=== PATIENT | female | born 1955 | race African-American/Black ===

== ENCOUNTER 2016-09-13 11:06 | Emergency (ER) | payer MEDICARE, MEDICAID ==
[~2016-09-13] VITALS: Ht 165.1 cm; Wt 81.6 kg
[~2016-09-13 11:06] MED LIST: AMLODIPINE BESY10 MG ORAL; ASPIR 8181 MG ORAL; COLACE100 MG ORAL; IBUPROFEN600 MG ORAL; INVANZ1 G1 IM; INVANZ1 GM IVPB; OMEPRAZOLE20 M2 ORAL; PENICILLIN V P500 MG PO; PREDNISONE20 MG ORAL; PROTONIX40 MG ORAL; TENORETIC ORAL; lidocaine
--- NOTE | 2016-09-13 12:16 | Emergency Room Report ---
History of Present Illness General Chief Complaint: Flu Like Symptoms Source: Patient Present Illness HPI Patient's a 60-year-old female who presented for increased nonproductive cough. Patient gradual onset of symptoms. Patient reported having a small amount of nasal bleeding. The patient stated that she had been taking her inhalers. She denied any leg pain or swelling. She denied any chest pain to she had not been having any fever. The patient reported having a persistent cough for approximately 3 weeks. She denied any weight loss. She's not a smoker. Allergies: Coded Allergies: No Known Allergies (Unverified , 10/18/15) Patient History Past Medical History: see triage record Reviewed Nursing Documentation: PMH: Agreed, PSxH: Agreed Nursing Documentation-PMH Hx Cardiac Problems: No Hx Hypertension: Yes Hx Pacemaker: No Hx Asthma: Yes - 4yrs ago Hx COPD: Yes Hx Gastrointestinal Problems: Yes Hx Neurological Problems: No Hx Tremors: Yes Hx Syncope: No Hx Headaches: Yes Hx Weakness: Yes Hx Neurologic Surgery: No Hx Brain Shunt: No Review of Systems All Other Systems: negative except mentioned in HPI Physical Exam Vital Signs Date Time Temp Pulse Resp B/P Pulse Ox O2 Delivery O2 Flow Rate FiO2 09/13/16 11:17 98.1 113 20 139/89 97 Room Air General Appearance: well appearing, no apparent distress, alert, GCS 15 Head: normocephalic, atraumatic ENT: hearing grossly normal, normal voice Neck: full range of motion, supple Respiratory: no respiratory distress, speaking full sentences Cardiovascular #1: normal peripheral pulses, regular rate, rhythm, no edema Gastrointestinal: normal bowel sounds, non tender, soft Musculoskeletal: normal inspection, back normal, digits/nails normal, no calf tenderness Neurologic: normal inspection, alert, oriented x3, fuller brush man III-XII nml as tested, motor strength/tone normal, DTRs symmetric, normal gait Psychiatric: mood/affect normal Skin: no rash Medical Decision Making Diagnostic Impression: Primary Impression: Bronchitis ER Course Patient is a 60-year-old female who presented for cough.Differential diagnosis included but was not limited to bronchitis, pneumonia, pulmonary embolism, pericarditis, asthma, foreign body. Patient's benign exam and does not appear to require any laboratory testing at this time. A chest x-ray one view interpreted by me showed no evident infiltrate with normal cardiac size normal mediastinum. There is no evident pleural effusion. There is no pneumothorax.The patient is advised to follow up with primary care doctor in 1-2 days. Patient is advised to return if any worsening condition or if any changes in status that are concerning. Chest X-Ray Diagnostic Results EP Interpretation: Yes Findings: no consolidation, no effusion, no pneumothorax, no acute cardiopulmonary disease Number of Views: 1 Last Vital Signs Date Time Temp Pulse Resp B/P Pulse Ox O2 Delivery O2 Flow Rate FiO2 09/13/16 11:24 113 20 Room Air 09/13/16 11:17 98.1 139/89 97 Status: improved Disposition: HOME, SELF-CARE Condition: Stable Scripts Guaifenesin* (ADULT W[facility]-TUSSIN*) 100 Mg/5 Ml Liquid 10 ML ORAL Q4H, #120 ML Prov: Rory Lowe 09/13/16 Rory Lowe Sep 13, 2016 12:16
[2016-09-13] MEDS ORDERED: ADULT WAL-100 MG/5 M ORAL (12:18)
[2016-09-13 12:30] VITALS: BP 139/89
--- NOTE | 2016-09-13 13:51 | Diagnostic Imaging Report ---
Indications: Chest pain Technique: Portable AP chest Findings: Comparison: None Cardiac silhouette remains normal in size. Pulmonary vasculature remains within normal limits. Lungs and pleura remain clear. Mild calcification of the aortic arch, suggestion of lower cervical vertebral degenerative changes again noted. IMPRESSION: No evidence of acute disease, unchanged Stable chronic changes as described
== END 2016-09-13 12:30 | disposition home or self-care (01) ==
LOC: EMR 12:22
DX: J44.0 Chronic obstructive pulmonary disease with (acute) lower respiratory infection (principal); J20.9 Acute bronchitis, unspecified; J45.909 Unspecified asthma, uncomplicated; I10 Essential (primary) hypertension
CPT/HCPCS: 71010; 99283

== ENCOUNTER → 2016-12-20 | Outpatient (CLI) | payer MEDICARE, MEDICAID ==
[~2016-12-20] MED LIST changes: +ADULT WAL-100 MG/5 M ORAL
--- NOTE | 2016-12-20 10:10 | Diagnostic Imaging Report ---
Indication: COUGH Technique: 2 views of the chest Comparison: 09/13/2016 single view chest. Findings: Lungs and pleural spaces are clear. Heart size is normal. Bones are unremarkable. Aorta is calcified. There are cholecystectomy clips. No significant change Impression: No acute process
== END | disposition home or self-care (01) ==
LOC: MAMMO 09:25
DX: Z12.31 Encounter for screening mammogram for malignant neoplasm of breast (principal); R05 Cough; Z90.49 Acquired absence of other specified parts of digestive tract
CPT/HCPCS: 71020; G0202; 77067

== ENCOUNTER → 2017-03-28 | Outpatient (CLI) | payer MEDICARE, OTHER ==
[2017-03-28 10:35] LABS: APPEARANCE,URINE CLOUDY; KETONES,URINE NEGATIVE (NEGATIVE); LEUKOCYTE ESTERASE ,URINE 2+ (NEGATIVE); NITRITE,URINE NEGATIVE (NEGATIVE); PH,URINE 6 (4.5-8.0); PROTEIN,URINE 1+ (NEGATIVE); UROBILINOGEN,URINE 1 MG/DL (0.0-1.0)
[2017-03-28 10:56] LABS: BASOPHILS % (AUTO) 1.2 % (0.0-2.0); EOSINOPHILS % (AUTO) 2.4 % (0.0-3.0); LYMPHOCYTES % (AUTO) 40.9 % (20.0-45.0); MEAN CORPUSCULAR HEMOGLOBIN 29.7 PG (27.0-31.0); MEAN CORPUSCULAR HGB CONC 33.6 G/DL (32.0-36.0); MEAN CORPUSCULAR VOLUME 88 FL (80-99); MEAN PLATELET VOLUME 7.4 FL (6.5-10.1); MONOCYTES % (AUTO) 5.5 % (1.0-10.0); NEUTROPHILS % (AUTO) 50.1 % (45.0-75.0); PLATELET COUNT 303 K/UL (150-450); RED BLOOD COUNT 4.63 M/UL (4.20-5.40); RED CELL DISTRIBUTION WIDTH 11.4 % (11.6-14.8); WHITE BLOOD COUNT 6.5 K/UL (4.8-10.8)
[2017-03-28 11:02] LABS: BACTERIA,URINE FEW /HPF; ICTOTEST NEGATIVE; MUCUS,URINE MODERATE /LPF (NONE/OCC); RBC,URINE 0-2 /HPF (0 - 2); SQUAMOUS EPITHELIAL CELL,UR FEW /LPF (NONE/OCC)
[2017-03-28 11:14] LABS: ANION GAP 11 (5-15); CALCIUM 9.7 mg/dL (8.6-10.2); CARBON DIOXIDE 28 mEQ/L (20-30); CHLORIDE 102 mEQ/L (98-107); CREATININE 0.8 mg/dL (0.5-0.9); GLOMERULAR FILTRATION RATE > 60 mL/min (>60); HEMOLYSIS 4; POTASSIUM 3.6 mEQ/L (3.4-4.9); SODIUM 141 mEQ/L (135-145)
== END | disposition home or self-care (01) ==
LOC: LAB 10:18
DX: M54.5 Low back pain (principal)
CPT/HCPCS: 36415; 80048; 81001; 85025

== ENCOUNTER 2017-06-24 09:47 | Outpatient (CLI) | payer MEDICARE, MEDICAID ==
[2017-06-24 10:58] LABS: CHOLESTEROL 231 MG/DL (< 200); CHOLESTEROL/HDL RATIO 3.1 (3.3-4.4); THYROID STIMULATING HORMONE 1.371 uiU/mL (0.358-3.740)
--- NOTE | 2017-06-24 16:58 | Diagnostic Imaging Report ---
Indication: History of renal cyst, abnormal prior renal ultrasound, stage I acute renal failure Technique: Grayscale and duplex images of the kidneys, retroperitoneum, and bladder were obtained. Comparison: 05/02/2016 Findings: Right kidney measures 12.4 cm in length. Left kidney measures 12.1 cm in length. Both kidneys demonstrate normal echogenicity. No hydronephrosis. Centimeters again demonstrated is a 4.1 cm diameter right renal interpolar region cyst, appearing unchanged from the prior study. Normal inferior vena cava. Bladder is normal. Impression: Right renal cyst, unchanged since prior study 05/02/2016 Negative for hydronephrosis.
--- NOTE | 2017-06-24 17:13 | Diagnostic Imaging Report ---
Indication: Reason For Exam: COUGH Technique: 2 views of the chest Comparison: 12/20/2016 Findings: No acute infiltrates, effusions, or congestion. Tortuous calcified aorta. Normal heart size. Upper mediastinum unremarkable. No significant change Impression: No acute process.
== END 2017-06-24 11:47 | disposition home or self-care (01) ==
LOC: ULS 09:47
DX: R05 Cough (principal); N28.1 Cyst of kidney, acquired; N19 Unspecified kidney failure
CPT/HCPCS: 36415; 71020; 76775; 80061; 84443; 93005

== ENCOUNTER 2017-08-07 11:32 | Outpatient (CLI) | payer MEDICARE, MEDICAID ==
--- NOTE | 2017-08-07 12:40 | Diagnostic Imaging Report ---
. Indication: Cough Technique: 2 views of the chest Comparison: 06/24/2017. Findings: Lungs and pleural spaces are clear. Heart size is normal. Bones are unremarkable. No significant interim change. Impression: No acute process
== END 2017-08-07 13:32 | disposition home or self-care (01) ==
LOC: RAD 11:32
DX: R05 Cough (principal)
CPT/HCPCS: 71046

== ENCOUNTER 2017-08-18 12:46 | Inpatient (IN) | payer MEDICARE, MEDICAID ==
[~2017-08-18] VITALS: Ht 165.1 cm; Wt 86.2 kg
--- NOTE | 2017-08-18 14:37 | Emergency Room Report ---
History of Present Illness General Chief Complaint: Upper Respiratory Illness Source: Patient (Jessica Gupta) Present Illness HPI Pt. presents to the ED c/o cough, nasal congestion, 10/10 in severity sore throat, body-aches, fevers, chills and headaches x 1 week. Patient states that she tested positive for influenza at her ED visit 3 days ago and was started on Tamiflu yesterday. She reports her cough has been progressive and now is productive. Patient states that she continues to feel worse. ear pain, high fevers, lethargy, neck pain/stiffness, irritability, photophobia dehydration, N/ V/D. Denies Palpitations, LOC, AMS, seizures, paresthesias, or changes in Hearing or vision, no Sudden severe CACERES. (Jessica Gupta) Allergies: Coded Allergies: No Known Allergies (Unverified , 10/18/15) Patient History Past Medical History: see triage record Past Surgical History: none Pertinent Family History: none Reviewed Nursing Documentation: PMH: Agreed, PSxH: Agreed (Jessica Gupta) Nursing Documentation-PMH Hx Hypertension: Yes Hx Pacemaker: No Hx Asthma: Yes Hx COPD: Yes Hx Gastrointestinal Problems: Yes Hx Neurological Problems: No Hx Tremors: Yes Hx Syncope: No Hx Headaches: Yes Hx Weakness: Yes Hx Neurologic Surgery: No Hx Brain Shunt: No (Jessica Gupta) Review of Systems All Other Systems: negative except mentioned in HPI (Jessica Gupta) Physical Exam Vital Signs Date Time Temp Pulse Resp B/P (MAP) Pulse Ox O2 Delivery O2 Flow Rate FiO2 08/18/17 12:55 99.9 114 18 126/64 95 Room Air Sp02 EP Interpretation: reviewed, normal General Appearance: alert, GCS 15, mild distress, lethargic Head: normocephalic, atraumatic Eyes: bilateral eye normal inspection, bilateral eye PERRL ENT: hearing grossly normal, normal voice, uvula midline, moist mucus membranes , pharyngeal erythema - no exudates Neck: full range of motion, no meningismus Respiratory: chest non-tender, lungs clear, normal breath sounds, speaking full sentences Cardiovascular #1: no edema, normal capillary refill, tachycardia Rectal: deferred Genitourinary: normal inspection Musculoskeletal: back normal, gait/station normal, normal range of motion, non- tender Neurologic: alert, oriented x3, responsive, motor strength/tone normal, sensory intact, speech normal, grossly normal Psychiatric: judgement/insight normal Skin: normal color, no rash, warm/dry, well hydrated Lymphatic: no adenopathy (Jessica Gupta) Medical Decision Making PA Attestation Dr. Lester is my supervising Physician whom patient management has been discussed with. (Jessica Gupta) Diagnostic Impression: Primary Impression: Influenza Additional Impression: Acute viral syndrome ER Course Pt. presents to the ED c/o cough, nasal congestion, 10/10 in severity sore throat, body-aches, fevers, chills and headaches x 1 week. Patient states that she tested positive for influenza at her ED visit 3 days ago and was started on Tamiflu yesterday. She reports her cough has been progressive and now is productive. Patient states that she continues to feel worse. ear pain, high fevers, lethargy, neck pain/stiffness, irritability, photophobia dehydration, N/ V/D. Denies Palpitations, LOC, AMS, seizures, paresthesias, or changes in Hearing or vision, no Sudden severe CACERES. Ddx considered but are not limited to URI, pneumonia, PE, strep pharyngitis, meningitis, influenza, OM/OE just to name a few. Vital signs: Pt. is afebrile, the remaining VS are WNL H&PE are most consistent with Viral Syndrome suspicious for Influenza will treat clinically - no meningeal signs, Lungs are clear and oropharynx is not involved, no evidence of bacterial infection at this time. ORDERS: -CBC: unremarkable -CMP: unremarkable -Lactic Acid: unremarkable -Blood Cultures x 2 : pending -Troponin : WNL -CXR : unremarkable -EK NSR no acute ST changes. -Influenza A & B antigen: Negative ED INTERVENTIONS: -Tylenol PO -Viscous Lidocaine PO DISPOSITION: at this time pt. will be admitted to Dr. Perry for positive influenza with viral syndrome. Dr. Perry agreed to admit the pt. and to continue pt. care management. Labs Test 08/18/17 14:55 White Blood Count 4.6 K/UL (4.8-10.8) Red Blood Count 4.60 M/UL (4.20-5.40) Hemoglobin 13.4 G/DL (12.0-16.0) Hematocrit 39.3 % (37.0-47.0) Mean Corpuscular Volume 85 FL (80-99) Mean Corpuscular Hemoglobin 29.1 PG (27.0-31.0) Mean Corpuscular Hemoglobin Concent 34.1 G/DL (32.0-36.0) Red Cell Distribution Width 11.3 % (11.6-14.8) Platelet Count 191 K/UL (150-450) Mean Platelet Volume 7.5 FL (6.5-10.1) Neutrophils (%) (Auto) 58.0 % (45.0-75.0) Lymphocytes (%) (Auto) 30.8 % (20.0-45.0) Monocytes (%) (Auto) 8.5 % (1.0-10.0) Eosinophils (%) (Auto) 1.3 % (0.0-3.0) Basophils (%) (Auto) 1.4 % (0.0-2.0) Sodium Level 137 MMOL/L (136-145) Potassium Level 3.6 MMOL/L (3.5-5.1) Chloride Level 104 MMOL/L (98-107) Carbon Dioxide Level 24 MMOL/L (21-32) Anion Gap 9 mmol/L (5-15) Blood Urea Nitrogen 5 mg/dL (7-18) Creatinine 0.8 MG/DL (0.55-1.30) Estimat Glomerular Filtration Rate > 60 mL/min (>60) Glucose Level 99 MG/DL (74-106) Lactic Acid Level 0.90 mmol/L (0.66-2.22) Calcium Level 9.3 MG/DL (8.5-10.1) Total Bilirubin 0.2 MG/DL (0.2-1.0) Aspartate Amino Transf (AST/SGOT) 28 U/L (15-37) Alanine Aminotransferase (ALT/SGPT) 36 U/L (12-78) Alkaline Phosphatase 128 U/L (46-116) Total Creatine Kinase 197 U/L (26-308) Troponin I 0.000 ng/mL (0.000-0.056) Total Protein 8.0 G/DL (6.4-8.2) Albumin 4.0 G/DL (3.4-5.0) Globulin 4.0 g/dL Albumin/Globulin Ratio 1.0 (1.0-2.7) (Jessica Gupta) ER Course Please see the above history and physical. I discussed this patient in detail with Seble Gupta. Dr. Schmidt had contacted her and stated that he wanted the patient admitted. The patient is admitted to medical floor. (Paulie Lester M.D.) EKG Diagnostic Results EP Interpretation: Dr. Lester Rate: normal - 92 Rhythm: NSR ST Segments: no acute changes ASA given to the pt in ED: No PA Scribe Text this interpretation was scribed by LAMINE Gupta (Jessica Gupta) Chest X-Ray Diagnostic Results Chest X-Ray Diagnostic Results : Chest X-Ray Ordered: Yes # of Views/Limited/Complete: 1 View Indication: Shortness of Breath EP Interpretation: Yes PA Xray: Interpretation reviewed, by supervising MD, and agrees with findings. Interpretation: no consolidation, no effusion, no pneumothorax, no acute cardiopulmonary disease Impression: No acute disease Electronically Signed by: Jessica Gupta PA-C (Jessica Gupta) Chest X-Ray Diagnostic Results : PA Xray: Interpretation reviewed, by supervising MD, and agrees with findings. - Paulie Lester MD (Paulie Lester M.D.) Last Vital Signs Date Time Temp Pulse Resp B/P (MAP) Pulse Ox O2 Delivery O2 Flow Rate FiO2 08/18/17 12:55 99.9 114 18 126/64 95 Room Air (Jessica Gupta) Disposition: ADMITTED INPATIENT Condition: Serious Referrals: LAURA PERRY (PCP) Jessica Gupta Aug 18, 2017 14:37 Paulie Lester M.D. Aug 20, 2017 06:59
[2017-08-18] MEDS ORDERED: Lidocaine 2% Visc 15ml soln ORAL ONE (14:45)
[2017-08-18 15:14] LABS: BASOPHILS % (AUTO) 1.4 % (0.0-2.0); EOSINOPHILS % (AUTO) 1.3 % (0.0-3.0); HEMATOCRIT 39.3 % (37.0-47.0); HEMOGLOBIN 13.4 G/DL (12.0-16.0); LYMPHOCYTES % (AUTO) 30.8 % (20.0-45.0); MEAN CORPUSCULAR VOLUME 85 FL (80-99); MONOCYTES % (AUTO) 8.5 % (1.0-10.0); PLATELET COUNT 191 K/UL (150-450); RED CELL DISTRIBUTION WIDTH 11.3 % (11.6-14.8); WHITE BLOOD COUNT 4.6 K/UL (4.8-10.8)
[2017-08-18 15:30] LABS: ANION GAP 9 mmol/L (5-15); BLOOD UREA NITROGEN 5 mg/dL (7-18); CALCIUM 9.3 MG/DL (8.5-10.1); CARBON DIOXIDE 24 MMOL/L (21-32); CHLORIDE 104 MMOL/L (98-107); CREATININE 0.8 MG/DL (0.55-1.30); POTASSIUM 3.6 MMOL/L (3.5-5.1); SODIUM 137 MMOL/L (136-145)
[2017-08-18 15:34] LABS: ALANINE AMINOTRANSFERASE 36 U/L (12-78); ALKALINE PHOSPHATASE 128 U/L (46-116); ASPARTATE AMINO TRANSFERASE 28 U/L (15-37); BILIRUBIN,TOTAL 0.2 MG/DL (0.2-1.0); CREATINE KINASE 197 U/L (26-308)
--- NOTE | 2017-08-18 16:59 | Diagnostic Imaging Report ---
Indication: Cough Technique: 2 views of the chest Comparison: 08/07/2017 Findings: Lungs and pleural spaces are clear. The heart size is normal. The aorta is tortuous and calcified. The bones are unremarkable. There is no significant interim change Impression: No acute process
[2017-08-18 17:29] VITALS: BP 129/57
--- NOTE | 2017-08-18 19:11 | Consultation ---
History of Present Illness General Date patient seen: Aug 18, 2017 Chief Complaint: Upper Respiratory Illness Present Illness HPI 61 year old female presented to the ED with c/o cough, nasal congestion, 10/10 in severity sore throat, body-aches, fevers, chills and headaches x 1 week. Patient states that she tested positive for influenza at her ED visit 3 days ago and was started on Tamiflu yesterday. She reports her cough has been progressive and now is productive. Patient states that she continues to feel worse. ear pain, high fevers, lethargy, neck pain/stiffness, irritability, photophobia dehydration, N/V/D. Denies Palpitations, LOC, AMS, seizures, paresthesias, or changes in Hearing or vision, no Sudden severe CACERES. She is admitted for further work up. Allergies: Coded Allergies: No Known Allergies (Unverified , 10/18/15) Medication History Scheduled Amlodipine Besylate* (Amlodipine Besylate*), 10 MG ORAL DAILY, (Reported) Aspirin* (Aspir 81*), 81 MG ORAL DAILY, (Reported) Atenolol/Chlorthalidone (Tenoretic 50 Tablet), 1 TAB ORAL DAILY, (Reported) Docusate Sodium* (Colace*), 100 MG ORAL TWICE A DAY, (Reported) Ertapenem (Invanz), 1 GM IM DAILY, (Reported) Ertapenem Sodium* (INVanz*), 1 GM IVPB Q24H, (Reported) Guaifenesin* (Adult [employer]-Tussin*), 10 ML ORAL Q4H Omeprazole (Omeprazole), 20 MG ORAL DAILY, (Reported) Pantoprazole* (Protonix*), 40 MG ORAL ACBREAKFAST, (Reported) Penicillin V Potassium* (Penvk*), 500 MG PO BID, (Reported) Prednisone* (Prednisone*), 60 MG ORAL DAILY, (Reported) Scheduled PRN Ibuprofen* (Motrin*), 600 MG ORAL Q8H PRN for For Pain, (Reported) Miscellaneous Medications [lidocaine], (Reported) Patient History Healthcare decision maker N Resuscitation status Full Code Advanced Directive on File Past Medical/Surgical History Past Medical/Surgical History: (1) HTN (hypertension) (2) COPD (chronic obstructive pulmonary disease) Review of Systems Respiratory: Reports: cough, shortness of breath All Other Systems: negative except mentioned in HPI Physical Exam General Appearance: WD/WN, no apparent distress Lines, tubes and drains: peripheral, central line HEENT: normocephalic, atraumatic Neck: non-tender, normal alignment Respiratory/Chest: chest wall non-tender, lungs clear Cardiovascular/Chest: normal peripheral pulses, normal rate Abdomen: normal bowel sounds, non tender Last 24 Hour Vital Signs Date Time Temp Pulse Resp B/P (MAP) Pulse Ox O2 Delivery O2 Flow Rate FiO2 08/18/17 17:29 98.2 88 19 129/57 96 08/18/17 17:12 99.0 08/18/17 12:55 99.9 114 18 126/64 95 Room Air Laboratory Tests Test 08/18/17 14:55 White Blood Count 4.6 K/UL (4.8-10.8) L Red Blood Count 4.60 M/UL (4.20-5.40) Hemoglobin 13.4 G/DL (12.0-16.0) Hematocrit 39.3 % (37.0-47.0) Mean Corpuscular Volume 85 FL (80-99) Mean Corpuscular Hemoglobin 29.1 PG (27.0-31.0) Mean Corpuscular Hemoglobin Concent 34.1 G/DL (32.0-36.0) Red Cell Distribution Width 11.3 % (11.6-14.8) L Platelet Count 191 K/UL (150-450) Mean Platelet Volume 7.5 FL (6.5-10.1) Neutrophils (%) (Auto) 58.0 % (45.0-75.0) Lymphocytes (%) (Auto) 30.8 % (20.0-45.0) Monocytes (%) (Auto) 8.5 % (1.0-10.0) Eosinophils (%) (Auto) 1.3 % (0.0-3.0) Basophils (%) (Auto) 1.4 % (0.0-2.0) Sodium Level 137 MMOL/L (136-145) Potassium Level 3.6 MMOL/L (3.5-5.1) Chloride Level 104 MMOL/L (98-107) Carbon Dioxide Level 24 MMOL/L (21-32) Anion Gap 9 mmol/L (5-15) Blood Urea Nitrogen 5 mg/dL (7-18) L Creatinine 0.8 MG/DL (0.55-1.30) Estimat Glomerular Filtration Rate > 60 mL/min (>60) Glucose Level 99 MG/DL (74-106) Lactic Acid Level 0.90 mmol/L (0.66-2.22) Calcium Level 9.3 MG/DL (8.5-10.1) Total Bilirubin 0.2 MG/DL (0.2-1.0) Aspartate Amino Transf (AST/SGOT) 28 U/L (15-37) Alanine Aminotransferase (ALT/SGPT) 36 U/L (12-78) Alkaline Phosphatase 128 U/L (46-116) H Total Creatine Kinase 197 U/L (26-308) Troponin I 0.000 ng/mL (0.000-0.056) Total Protein 8.0 G/DL (6.4-8.2) Albumin 4.0 G/DL (3.4-5.0) Globulin 4.0 g/dL Albumin/Globulin Ratio 1.0 (1.0-2.7) Height (Feet): 5 Height (Inches): 5.00 Weight (Pounds): 190 Assessment/Plan Problem List: (1) Bronchitis ICD Codes: J40 - Bronchitis, not specified as acute or chronic SNOMED: 09871477 (2) Acute viral syndrome ICD Codes: B34.9 - Viral infection, unspecified SNOMED: 33854599 (3) Influenza ICD Codes: J11.1 - Influenza due to unidentified influenza virus with other respiratory manifestations SNOMED: 0385795 (4) COPD (chronic obstructive pulmonary disease) ICD Codes: J44.9 - Chronic obstructive pulmonary disease, unspecified SNOMED: 17592964 (5) HTN (hypertension) ICD Codes: I10 - Essential (primary) hypertension SNOMED: 15425685 Assessment/Plan respiratory treatment and isolation Tamiflu check sputum for culture and sensitivity. titrate fio2 antitussives. CANDACE TRINH Aug 18, 2017 19:11
[2017-08-18] MEDS ORDERED: Albuterol/Ipratropium 3ml neb HHN PRN (19:15)
[2017-08-18] MEDS ORDERED: Morphine Sulfate 4mg/ml Inj IVP PRN (19:15)
[2017-08-18] MEDS ORDERED: Miralax 17gm pkt ORAL PRN (19:15)
[2017-08-18 20:00] VITALS: BP 125/82
[2017-08-18 21:00] VITALS: BP 125/82
[2017-08-18] MEDS ORDERED: Vancomycin 1.5gm/D5W 250ml 250 ML IVPB SCH (21:00)
[2017-08-18] MEDS: Cefepime HCl 2 GM in NS 110 ML IV SCH (21:30)
[2017-08-18] MEDS: Heparin 5000 units/ml inj SUBQ SCH (21:33)
[2017-08-18] MEDS ORDERED: Acetaminophen 500mg (ES) tab ORAL PRN (22:30)
[2017-08-18] MEDS ORDERED: Vancomycin 1 GM in D5W 275 ML IV SCH (23:00)
[2017-08-19] VITALS (7 sets, daily range): BP systolic 117–141; BP diastolic 65–87
[2017-08-19 04:08] LABS: APPEARANCE,URINE CLEAR; BILIRUBIN, URINE NEGATIVE (NEGATIVE); COLOR,URINE PALE YELLOW; GLUCOSE, URINE (UA) NEGATIVE (NEGATIVE); KETONES,URINE NEGATIVE (NEGATIVE); LEUKOCYTE ESTERASE ,URINE 1+ (NEGATIVE); NITRITE,URINE NEGATIVE (NEGATIVE); PH,URINE 6 (4.5-8.0); PROTEIN,URINE NEGATIVE (NEGATIVE); UROBILINOGEN,URINE NORMAL MG/DL (0.0-1.0)
[2017-08-19] MEDS: Cefepime HCl 2 GM in NS 110 ML IV SCH (08:42)
[2017-08-19] MEDS: Aspirin EC 81mg tab ORAL SCH (08:43)
[2017-08-19] MEDS: Oseltamivir 75mg cap ORAL SCH ×2 (08:43→18:53)
[2017-08-19] MEDS: Heparin 5000 units/ml inj SUBQ SCH ×2 (08:48→21:00)
[2017-08-19] MEDS ORDERED: Vancomycin 1gm in D5W 275ml IVPB SCH (09:00)
[2017-08-19 10:35] LABS: HEMOGLOBIN 12.8 G/DL (12.0-16.0); MEAN CORPUSCULAR VOLUME 87 FL (80-99); PLATELET COUNT 192 K/UL (150-450); RED BLOOD COUNT 4.38 M/UL (4.20-5.40); RED CELL DISTRIBUTION WIDTH 11.4 % (11.6-14.8); WHITE BLOOD COUNT 3.2 K/UL (4.8-10.8)
[2017-08-19 11:00] LABS: ALBUMIN 3.6 G/DL (3.4-5.0); ANION GAP 7 mmol/L (5-15); BLOOD UREA NITROGEN 3 mg/dL (7-18); CALCIUM 8.7 MG/DL (8.5-10.1); CARBON DIOXIDE 28 MMOL/L (21-32); CHLORIDE 106 MMOL/L (98-107); CREATININE 0.7 MG/DL (0.55-1.30); PHOSPHORUS 2.9 MG/DL (2.5-4.9); POTASSIUM 3.4 MMOL/L (3.5-5.1); SODIUM 140 MMOL/L (136-145)
--- NOTE | 2017-08-19 18:49 | Pulmonology Progress Note ---
Assessment/Plan Problems: (1) Bronchitis (2) Acute viral syndrome (3) Influenza (4) COPD (chronic obstructive pulmonary disease) (5) HTN (hypertension) Assessment/Plan respiratory treatment iv abx check sputum tamiflu symptomatic treatment Subjective ROS Limited/Unobtainable: No Allergies: Coded Allergies: No Known Allergies (Unverified , 10/18/15) Objective Last 24 Hour Vital Signs Date Time Temp Pulse Resp B/P (MAP) Pulse Ox O2 Delivery O2 Flow Rate FiO2 08/19/17 16:07 98.8 94 19 123/65 98 08/19/17 12:00 99.3 93 20 141/78 96 08/19/17 12:00 99.3 93 20 141/78 96 08/19/17 08:53 97.7 08/19/17 08:47 88 136/87 08/19/17 08:00 97.7 90 20 136/87 98 08/19/17 04:00 98.4 87 19 131/84 97 08/19/17 00:00 97 Room Air 08/19/17 00:00 98.4 90 20 138/82 97 08/18/17 21:00 98.2 89 20 125/82 94 08/18/17 20:00 94 Room Air 08/18/17 20:00 98.2 85 20 125/82 94 Intake and Output 08/18/17 08/19/17 19:00 07:00 Intake Total 470 ml Balance 470 ml IV Total 470 ml # Voids 1 2 Objective General Appearance: WD/WN, no apparent distress Lines, tubes and drains: peripheral, HEENT: normocephalic, atraumatic Neck: non-tender, normal alignment Respiratory/Chest: chest wall non-tender, lungs clear Cardiovascular/Chest: normal peripheral pulses, normal rate Abdomen: normal bowel sounds, non tender Microbiology Date/Time Source Procedure Growth Status 08/19/17 02:45 Sputum Gram Stain - Final Resulted 08/19/17 02:45 Sputum Sputum Culture Pending Resulted 08/18/17 18:45 Nasal Nares Influenza Types A,B Antigen (DESIREE) - Final Complete Laboratory Tests 08/19/17 02:40: Urine Color Pale yellow, Urine Appearance Clear, Urine pH 6, Urine Specific [place] 1.010, Urine Protein Negative, Urine Glucose (UA) Negative, Urine Ketones Negative, Urine Occult Blood 3+H, Urine Nitrite Negative, Urine Bilirubin Negative, Urine Urobilinogen Normal, Urine Leukocyte Esterase 1+H, Urine RBC 10-15H, Urine WBC 2-4, Urine Squamous Epithelial Cells Few, Urine Bacteria Few 08/19/17 10:30: White Blood Count 3.2L, Red Blood Count 4.38, Hemoglobin 12.8, Hematocrit 38.0, Mean Corpuscular Volume 87, Mean Corpuscular Hemoglobin 29.4, Mean Corpuscular Hemoglobin Concent 33.8, Red Cell Distribution Width 11.4L, Platelet Count 192, Mean Platelet Volume 7.1, Neutrophils (%) (Auto) , Lymphocytes (%) (Auto) , Monocytes (%) (Auto) , Eosinophils (%) (Auto) , Basophils (%) (Auto) , Differential Total Cells Counted 100, Neutrophils % (Manual) 38L, Lymphocytes % (Manual) 56H, Monocytes % (Manual) 5, Eosinophils % (Manual) 1, Basophils % ( Manual) 0, Band Neutrophils 0, Platelet Estimate Adequate, Platelet Morphology Normal, Red Blood Cell Morphology Normal, Sodium Level 140, Potassium Level 3.4L , Chloride Level 106, Carbon Dioxide Level 28, Anion Gap 7, Blood Urea Nitrogen 3L, Creatinine 0.7, Estimat Glomerular Filtration Rate > 60, Glucose Level 110H , Calcium Level 8.7, Phosphorus Level 2.9, Albumin 3.6 Current Medications Medications (Trade) Dose Ordered Sig/Elena Route PRN Reason Start Time Stop Time Status Last Admin Dose Admin Acetaminophen (Tylenol) 500 mg EVERY 6 HOURS PRN ORAL Mild Pain/Temp > 100.5 08/18/17 22:30 09/17/17 22:29 Acetaminophen (Tylenol) 650 mg Q4H PRN ORAL FEVER 08/18/17 19:15 09/17/17 19:14 08/19/17 07:54 Albuterol/ Ipratropium (Albuterol/ Ipratropium) 3 ml Q4H PRN HHN Shortness of Breath 08/18/17 19:15 08/23/17 19:14 Amlodipine Besylate (Norvasc) 10 mg DAILY ORAL 08/19/17 09:00 09/18/17 08:59 08/19/17 08:47 Aspirin (Ecotrin) 81 mg DAILY ORAL 08/19/17 09:00 09/18/17 08:59 08/19/17 08:43 Cetylpyridinium Chloride (Cepacol) 1 lozg EVERY 4 HOURS PRN TONYA For Pain 08/18/17 22:30 09/17/17 22:29 08/18/17 23:18 Dextrose (Dextrose 50%) STAT PRN IV Hypoglycemia 08/18/17 19:15 09/17/17 19:14 Heparin Sodium (Porcine) (Heparin 5000 units/ml) 5,000 units EVERY 12 HOURS SUBQ 08/18/17 21:00 09/17/17 20:59 08/19/17 08:48 Morphine Sulfate (Morphine Sulfate) 2 mg Q4H PRN IVP Severe Pain (Pain Scale 7-10) 08/18/17 19:15 08/25/17 19:14 Ondansetron HCl (Zofran) 4 mg Q6H PRN IVP Nausea & Vomiting 08/18/17 19:15 09/17/17 19:14 Oseltamivir Phosphate (Tamiflu) 75 mg TWICE A DAY ORAL 08/19/17 09:00 08/24/17 08:59 08/19/17 08:43 Pantoprazole (Protonix) 40 mg DAILY ORAL 08/19/17 13:00 09/18/17 12:59 08/19/17 12:48 Polyethylene Glycol (Miralax) 17 gm DAILYPRN PRN ORAL Constipation 08/18/17 19:15 09/17/17 19:14 CANDACE TRINH Aug 19, 2017 18:49
--- NOTE | 2017-08-19 19:25 | Cardiology Progress Note ---
Assessment/Plan Assessment/Plan The patient is seen and examined, full consult note will be dictated shortly. Objective Last 24 Hour Vital Signs Date Time Temp Pulse Resp B/P (MAP) Pulse Ox O2 Delivery O2 Flow Rate FiO2 08/19/17 16:07 98.8 94 19 123/65 98 08/19/17 12:00 99.3 93 20 141/78 96 08/19/17 12:00 99.3 93 20 141/78 96 08/19/17 08:53 97.7 08/19/17 08:47 88 136/87 08/19/17 08:00 97.7 90 20 136/87 98 08/19/17 04:00 98.4 87 19 131/84 97 08/19/17 00:00 97 Room Air 08/19/17 00:00 98.4 90 20 138/82 97 08/18/17 21:00 98.2 89 20 125/82 94 08/18/17 20:00 94 Room Air 08/18/17 20:00 98.2 85 20 125/82 94 Intake and Output 08/18/17 08/19/17 19:00 07:00 Intake Total 470 ml Balance 470 ml IV Total 470 ml # Voids 1 2 Laboratory Tests Test 08/19/17 02:40 08/19/17 10:30 Urine Color Pale yellow Urine Appearance Clear Urine pH 6 (4.5-8.0) Urine Specific [place] 1.010 (1.005-1.035) Urine Protein Negative (NEGATIVE) Urine Glucose (UA) Negative (NEGATIVE) Urine Ketones Negative (NEGATIVE) Urine Occult Blood 3+ (NEGATIVE) H Urine Nitrite Negative (NEGATIVE) Urine Bilirubin Negative (NEGATIVE) Urine Urobilinogen Normal MG/DL (0.0-1.0) Urine Leukocyte Esterase 1+ (NEGATIVE) H Urine RBC 10-15 /HPF (0 - 2) H Urine WBC 2-4 /HPF (0 - 2) Urine Squamous Epithelial Cells Few /LPF (NONE/OCC) Urine Bacteria Few /HPF (NONE) White Blood Count 3.2 K/UL (4.8-10.8) L Red Blood Count 4.38 M/UL (4.20-5.40) Hemoglobin 12.8 G/DL (12.0-16.0) Hematocrit 38.0 % (37.0-47.0) Mean Corpuscular Volume 87 FL (80-99) Mean Corpuscular Hemoglobin 29.4 PG (27.0-31.0) Mean Corpuscular Hemoglobin Concent 33.8 G/DL (32.0-36.0) Red Cell Distribution Width 11.4 % (11.6-14.8) L Platelet Count 192 K/UL (150-450) Mean Platelet Volume 7.1 FL (6.5-10.1) Neutrophils (%) (Auto) % (45.0-75.0) Lymphocytes (%) (Auto) % (20.0-45.0) Monocytes (%) (Auto) % (1.0-10.0) Eosinophils (%) (Auto) % (0.0-3.0) Basophils (%) (Auto) % (0.0-2.0) Differential Total Cells Counted 100 Neutrophils % (Manual) 38 % (45-75) L Lymphocytes % (Manual) 56 % (20-45) H Monocytes % (Manual) 5 % (1-10) Eosinophils % (Manual) 1 % (0-3) Basophils % (Manual) 0 % (0-2) Band Neutrophils 0 % (0-8) Platelet Estimate Adequate Platelet Morphology Normal Red Blood Cell Morphology Normal Sodium Level 140 MMOL/L (136-145) Potassium Level 3.4 MMOL/L (3.5-5.1) L Chloride Level 106 MMOL/L (98-107) Carbon Dioxide Level 28 MMOL/L (21-32) Anion Gap 7 mmol/L (5-15) Blood Urea Nitrogen 3 mg/dL (7-18) L Creatinine 0.7 MG/DL (0.55-1.30) Estimat Glomerular Filtration Rate > 60 mL/min (>60) Glucose Level 110 MG/DL (74-106) H Calcium Level 8.7 MG/DL (8.5-10.1) Phosphorus Level 2.9 MG/DL (2.5-4.9) Albumin 3.6 G/DL (3.4-5.0) Microbiology Date/Time Source Procedure Growth Status 08/19/17 02:45 Sputum Gram Stain - Final Resulted 08/19/17 02:45 Sputum Sputum Culture Pending Resulted 08/18/17 18:45 Nasal Nares Influenza Types A,B Antigen (DESIREE) - Final Complete MANDA QUINONES Aug 19, 2017 19:25
--- NOTE | 2017-08-19 21:45 | History and Physical Report ---
DATE OF ADMISSION: 08/18/2017 TIME: 1 p.m. CONSULTANTS: 1. Dr. Roth. 2. Judah Posada M.D. 3. Wild Greer M.D. CHIEF COMPLAINT: Chest pain, short of breath, coughing, and influenza. BRIEF HISTORY: The patient is a 61-year-old female who lives at home presents to [facility] ER last night. She comes to office regularly, apparently had URI for about a month. The patient was treated initially with antibiotic, apparently was refractory. The patient into the ER, diagnosed chest pain, shortness of breath, weakness, and also diagnosed with influenza, and admitted to medical floor for further treatment. Currently, slightly congested, slight short of breath in bed. No complaint. REVIEW OF SYSTEMS: Slight chest pain. Slight short of breath. No nausea, vomiting, or diarrhea. PAST MEDICAL HISTORY: Hypertension, COPD, and GERD. PAST SURGICAL HISTORY: Gallbladder and hysterectomy. MEDICATIONS: Protonix, Norvasc, Ecotrin, Tamiflu, vancomycin, Depakote, Tylenol, heparin, cefepime, Zofran, morphine, Tylenol, and albuterol. ALLERGIES: Denies. SOCIAL HISTORY: No smoking. No alcohol. No intravenous drug abuse. FAMILY HISTORY: Noncontributory. PHYSICAL EXAMINATION: GENERAL: Slight short of breath in bed, oriented x3, no acute distress. VITAL SIGNS: Temperature 97 degrees, pulse 88, respirations 20, and blood pressure 136/87. CARDIOVASCULAR: No murmur. PULMONARY: Poor air exchange. Slight congested bilaterally. ABDOMEN: Bowel sounds positive. Nontender. Nondistended. EXTREMITIES: No cyanosis or edema. NEUROLOGIC: The patient moves all extremities slightly weak. LABORATORY AND DIAGNOSTIC DATA: White count 3.2, otherwise CBC is normal. BMP show potassium 3.4 and glucose 110. Troponin 0.00, otherwise BNP is normal. Urinalysis show 3+ occult blood and 1+ leukocyte esterase. ASSESSMENT: 1. Urinary tract infection. 2. Chest pain. 3. Shortness of breath. 4. Influenza. 5. Weakness. 6. Acute coronary syndrome. 7. Hypertension. 8. Chronic obstructive pulmonary disease. 9. Gastroesophageal reflux disease. PLAN: 1. O2 and pulmonary treatment. 2. Antibiotics per Infectious Disease. 3. Blood pressure and pain control. 4. Dietary followup. 5. Resume home medications. 6. CBC and BMP in the morning. 7. We will continue to follow the patient. Santiago Anders D.O. DR: DARSHAN JOB#: [id number] CC:
[2017-08-20] VITALS: BP 136/83
--- NOTE | 2017-08-20 00:30 | Consultation ---
DATE OF CONSULTATION: 08/19/2017 INFECTIOUS DISEASE CONSULTATION CONSULTING PHYSICIAN: Servando Schneider M.D. PRIMARY ATTENDING PHYSICIAN: Santiago Anders D.O. REASON FOR CONSULTATION: Influenza A. HISTORY OF PRESENT ILLNESS: The patient is a 61-year-old female admitted yesterday complaining of coughing, congestion, body ache, and headache. Symptoms started one week ago. She had subjective fever at home, but no significant fever in the hospital. PAST MEDICAL HISTORY: Significant for COPD and hypertension. MEDICATIONS: Getting Protonix, amlodipine, aspirin, Tamiflu, vancomycin, Depakote, Tylenol, cefepime, heparin, Zofran, MiraLAX, morphine, albuterol and ipratropium inhaler. ALLERGIES: No known drug allergies. SOCIAL HISTORY: Lives alone. Denies any sick contact. Denies alcohol, drug abuse, or smoking. REVIEW OF SYSTEMS: General, feels better since admission. Has some sore throat and coughing. Cough is occasionally productive. No shortness of breath. No chest pain. No nausea. No vomiting. No diarrhea. No problem passing urine. PHYSICAL EXAMINATION: VITAL SIGNS: Temperature 99.3, pulse 92, and blood pressure is 141/78. GENERAL APPEARANCE: No acute distress. Well developed. HEAD AND NECK: [place] conjunctivae. No oral lesions. HEART: S1, S2. Regular. LUNGS: Clear. ABDOMEN: Soft and nontender. EXTREMITY: She has no edema. LABORATORY DATA: WBC 3.1, hemoglobin 12.8, hematocrit 38, and platelet is 192,000. Sodium 140, potassium 3.4, chloride 106, bicarbonate 28, BUN 3, creatinine 0.7, and glucose 110. Influenza test was done in hospital was negative, but she had positive flu test in another visit three days before admission and was started on Tamiflu one day before admission. Chest x-ray, no acute process. IMPRESSION: 1. Influenza A. 2. Upper respiratory infection. 3. Chronic obstructive pulmonary disease. 4. Acute bronchitis. 5. Hypertension. RECOMMENDATIONS: We will continue Tamiflu. We will discontinue vancomycin and cefepime. At the end of my exam, I thank Dr. Santiago Anders for involving me in the care of this patient. Servando Schneider M.D. DR: BUCKY JOB#: [id number] CC: ANA LILIA
[2017-08-20 04:00] VITALS: BP 114/71
[2017-08-20 08:15] VITALS: BP 137/85
[2017-08-20] MEDS: Heparin 5000 units/ml inj SUBQ SCH ×2 (09:00→21:00)
[2017-08-20] MEDS: Aspirin EC 81mg tab ORAL SCH (09:10)
[2017-08-20] MEDS: Oseltamivir 75mg cap ORAL SCH ×2 (09:10→17:07)
[2017-08-20 11:17] LABS: BASOPHILS % (AUTO) 0.8 % (0.0-2.0); EOSINOPHILS % (AUTO) 1.2 % (0.0-3.0); HEMATOCRIT 39.5 % (37.0-47.0); HEMOGLOBIN 13.2 G/DL (12.0-16.0); LYMPHOCYTES % (AUTO) 20.9 % (20.0-45.0); MEAN CORPUSCULAR VOLUME 85 FL (80-99); MONOCYTES % (AUTO) 4.4 % (1.0-10.0); NEUTROPHILS % (AUTO) 72.8 % (45.0-75.0); PLATELET COUNT 190 K/UL (150-450); RED BLOOD COUNT 4.64 M/UL (4.20-5.40); WHITE BLOOD COUNT 4.5 K/UL (4.8-10.8)
[2017-08-20 11:37] LABS: PHOSPHORUS 2.4 MG/DL (2.5-4.9)
[2017-08-20] MEDS: Docusate 100mg cap ORAL SCH ×2 (11:43→17:06)
[2017-08-20 12:00] VITALS: BP 130/78
[2017-08-20 12:08] LABS: ALANINE AMINOTRANSFERASE 71 U/L (12-78); ALBUMIN 3.6 G/DL (3.4-5.0); ALBUMIN/GLOBULIN RATIO 1.1 (1.0-2.7); ALKALINE PHOSPHATASE 120 U/L (46-116); ANION GAP 12 mmol/L (5-15); ASPARTATE AMINO TRANSFERASE 55 U/L (15-37); BILIRUBIN,TOTAL 0.4 MG/DL (0.2-1.0); BLOOD UREA NITROGEN 5 mg/dL (7-18); CALCIUM 8.8 MG/DL (8.5-10.1); CARBON DIOXIDE 24 MMOL/L (21-32); CHLORIDE 103 MMOL/L (98-107); CREATININE 0.8 MG/DL (0.55-1.30); POTASSIUM 3.5 MMOL/L (3.5-5.1); SODIUM 139 MMOL/L (136-145)
--- NOTE | 2017-08-20 12:21 | Infectious Diseases Prog Note ---
Assessment/Plan Assessment/Plan A; Influenza A Bronchitis COPD Fever P: Continue Tamiflu start on Zithromax & Rocephin Subjective ROS Limited/Unobtainable: Yes Constitutional: Reports: fever Respiratory: Reports: productive cough Cardiovascular: Reports: no symptoms Gastrointestinal/Abdominal: Reports: no symptoms Genitourinary: Reports: no symptoms Allergies: Coded Allergies: No Known Allergies (Unverified , 10/18/15) Objective Vital Signs Last 24 Hour Vital Signs Date Time Temp Pulse Resp B/P (MAP) Pulse Ox O2 Delivery O2 Flow Rate FiO2 08/20/17 12:00 100.7 110 21 130/78 99 Room Air 08/20/17 09:10 80 137/85 08/20/17 08:23 Room Air 08/20/17 08:23 80 18 Room Air 21 08/20/17 08:23 95 Room Air 21 08/20/17 08:15 98.8 97 21 137/85 98 Room Air 08/20/17 04:00 98 Room Air 08/20/17 04:00 99.1 91 21 114/71 98 08/20/17 00:00 99.1 97 21 136/83 97 08/19/17 21:00 99.1 88 21 117/72 99 08/19/17 20:51 96 Room Air 21 08/19/17 20:51 Room Air 21 08/19/17 20:48 85 18 Room Air 21 08/19/17 20:00 99 Room Air 08/19/17 20:00 99.1 88 21 117/72 99 08/19/17 16:07 98.8 94 19 123/65 98 Height (Feet): 5 Height (Inches): 5.00 Weight (Pounds): 190 General Appearance: no acute distress HEENT: mucous membranes moist Respiratory/Chest: lungs clear Cardiovascular: tachycardia Abdomen: normal bowel sounds Extremities: no edema Neurologic/Psychiatric: alert, oriented x 3, responsive Microbiology Date/Time Source Procedure Growth Status 08/18/17 14:54 Blood Blood Culture - Preliminary NO GROWTH AFTER 24 HOURS Resulted 08/18/17 14:54 Blood Blood Culture - Preliminary NO GROWTH AFTER 24 HOURS Resulted 08/19/17 02:45 Sputum Gram Stain - Final Resulted 08/19/17 02:45 Sputum Sputum Culture - Preliminary NORMAL UPPER RESPIRATORY ALDO AT 24 ... Resulted 2/5/18 18:45 Nasal Nares Influenza Types A,B Antigen (DESIREE) - Final Complete Laboratory Tests Test 08/20/17 10:35 White Blood Count 4.5 K/UL (4.8-10.8) L Red Blood Count 4.64 M/UL (4.20-5.40) Hemoglobin 13.2 G/DL (12.0-16.0) Hematocrit 39.5 % (37.0-47.0) Mean Corpuscular Volume 85 FL (80-99) Mean Corpuscular Hemoglobin 28.4 PG (27.0-31.0) Mean Corpuscular Hemoglobin Concent 33.4 G/DL (32.0-36.0) Red Cell Distribution Width 11.0 % (11.6-14.8) L Platelet Count 190 K/UL (150-450) Mean Platelet Volume 7.4 FL (6.5-10.1) Neutrophils (%) (Auto) 72.8 % (45.0-75.0) Lymphocytes (%) (Auto) 20.9 % (20.0-45.0) Monocytes (%) (Auto) 4.4 % (1.0-10.0) Eosinophils (%) (Auto) 1.2 % (0.0-3.0) Basophils (%) (Auto) 0.8 % (0.0-2.0) Erythrocyte Sedimentation Rate Pending Sodium Level 139 MMOL/L (136-145) Potassium Level 3.5 MMOL/L (3.5-5.1) Chloride Level 103 MMOL/L (98-107) Carbon Dioxide Level 24 MMOL/L (21-32) Anion Gap 12 mmol/L (5-15) Blood Urea Nitrogen 5 mg/dL (7-18) L Creatinine 0.8 MG/DL (0.55-1.30) Estimat Glomerular Filtration Rate > 60 mL/min (>60) Glucose Level 102 MG/DL (74-106) Calcium Level 8.8 MG/DL (8.5-10.1) Phosphorus Level 2.4 MG/DL (2.5-4.9) L Magnesium Level 1.7 MG/DL (1.8-2.4) L Total Bilirubin 0.4 MG/DL (0.2-1.0) Aspartate Amino Transf (AST/SGOT) 55 U/L (15-37) H Alanine Aminotransferase (ALT/SGPT) 71 U/L (12-78) Alkaline Phosphatase 120 U/L (46-116) H C-Reactive Protein, Quantitative 5.5 mg/dL (0.00-0.90) H Total Protein 7.0 G/DL (6.4-8.2) Albumin 3.6 G/DL (3.4-5.0) Globulin 3.4 g/dL Albumin/Globulin Ratio 1.1 (1.0-2.7) Current Medications Medications (Trade) Dose Ordered Sig/Elena Route PRN Reason Start Time Stop Time Status Last Admin Dose Admin Acetaminophen (Tylenol) 500 mg EVERY 6 HOURS PRN ORAL Mild Pain/Temp > 100.5 08/18/17 22:30 09/17/17 22:29 Acetaminophen (Tylenol) 650 mg Q4H PRN ORAL FEVER 08/18/17 19:15 09/17/17 19:14 08/20/17 01:05 Albuterol/ Ipratropium (Albuterol/ Ipratropium) 3 ml Q4H PRN HHN Shortness of Breath 08/18/17 19:15 08/23/17 19:14 Amlodipine Besylate (Norvasc) 10 mg DAILY ORAL 08/19/17 09:00 09/18/17 08:59 08/20/17 09:10 Aspirin (Ecotrin) 81 mg DAILY ORAL 08/19/17 09:00 09/18/17 08:59 08/20/17 09:10 Cetylpyridinium Chloride (Cepacol) 1 lozg EVERY 4 HOURS PRN TONYA For Pain 08/18/17 22:30 09/17/17 22:29 08/18/17 23:18 Dextrose (Dextrose 50%) STAT PRN IV Hypoglycemia 08/18/17 19:15 09/17/17 19:14 Docusate Sodium (Colace) 100 mg TWICE A DAY ORAL 08/20/17 12:00 09/19/17 11:59 08/20/17 11:43 Heparin Sodium (Porcine) (Heparin 5000 units/ml) 5,000 units EVERY 12 HOURS SUBQ 08/18/17 21:00 09/17/17 20:59 08/19/17 08:48 Morphine Sulfate (Morphine Sulfate) 2 mg Q4H PRN IVP Severe Pain (Pain Scale 7-10) 08/18/17 19:15 08/25/17 19:14 Ondansetron HCl (Zofran) 4 mg Q6H PRN IVP Nausea & Vomiting 08/18/17 19:15 09/17/17 19:14 Oseltamivir Phosphate (Tamiflu) 75 mg TWICE A DAY ORAL 08/19/17 09:00 08/24/17 08:59 08/20/17 09:10 Pantoprazole (Protonix) 40 mg DAILY ORAL 08/19/17 13:00 09/18/17 12:59 08/20/17 09:10 Polyethylene Glycol (Miralax) 17 gm DAILYPRN PRN ORAL Constipation 08/18/17 19:15 09/17/17 19:14 MELANIA BAUTISTA Aug 20, 2017 12:21
--- NOTE | 2017-08-20 12:24 | General Progress Note ---
Assessment/Plan Problem List: (1) ACS (acute coronary syndrome) ICD Codes: I24.9 - Acute ischemic heart disease, unspecified SNOMED: 326486548 (2) Hypertension ICD Codes: I10 - Essential (primary) hypertension SNOMED: 57454359 (3) Sore throat ICD Codes: J02.9 - Acute pharyngitis, unspecified SNOMED: 852517871 (4) GERD (gastroesophageal reflux disease) ICD Codes: K21.9 - Gastro-esophageal reflux disease without esophagitis SNOMED: 294139619 (5) Shortness of breath ICD Codes: R06.02 - Shortness of breath SNOMED: 575608728 (6) COPD (chronic obstructive pulmonary disease) ICD Codes: J44.9 - Chronic obstructive pulmonary disease, unspecified SNOMED: 34425091 Status: unchanged Assessment/Plan o2 pulm tx abx ot pt dit cbc bmp am Subjective Constitutional: Reports: weakness Allergies: Coded Allergies: No Known Allergies (Unverified , 10/18/15) All Systems: reviewed and negative except above Subjective sl sob cough Objective Last 24 Hour Vital Signs Date Time Temp Pulse Resp B/P (MAP) Pulse Ox O2 Delivery O2 Flow Rate FiO2 08/20/17 12:00 100.7 110 21 130/78 99 Room Air 08/20/17 09:10 80 137/85 08/20/17 08:23 Room Air 08/20/17 08:23 80 18 Room Air 21 08/20/17 08:23 95 Room Air 21 08/20/17 08:15 98.8 97 21 137/85 98 Room Air 08/20/17 04:00 98 Room Air 08/20/17 04:00 99.1 91 21 114/71 98 08/20/17 00:00 99.1 97 21 136/83 97 08/19/17 21:00 99.1 88 21 117/72 99 08/19/17 20:51 96 Room Air 21 08/19/17 20:51 Room Air 21 08/19/17 20:48 85 18 Room Air 21 08/19/17 20:00 99 Room Air 08/19/17 20:00 99.1 88 21 117/72 99 08/19/17 16:07 98.8 94 19 123/65 98 Intake and Output 08/19/17 08/20/17 19:00 07:00 Intake Total 880 ml Balance 880 ml Intake Oral 880 ml # Voids 7 2 Laboratory Tests 08/20/17 10:35: White Blood Count 4.5L, Red Blood Count 4.64, Hemoglobin 13.2, Hematocrit 39.5, Mean Corpuscular Volume 85, Mean Corpuscular Hemoglobin 28.4, Mean Corpuscular Hemoglobin Concent 33.4, Red Cell Distribution Width 11.0L, Platelet Count 190, Mean Platelet Volume 7.4, Neutrophils (%) (Auto) 72.8, Lymphocytes (%) (Auto) 20.9, Monocytes (%) (Auto) 4.4, Eosinophils (%) (Auto) 1.2, Basophils (%) (Auto ) 0.8, Erythrocyte Sedimentation Rate [Pending], Sodium Level 139, Potassium Level 3.5, Chloride Level 103, Carbon Dioxide Level 24, Anion Gap 12, Blood Urea Nitrogen 5L, Creatinine 0.8, Estimat Glomerular Filtration Rate > 60, Glucose Level 102, Calcium Level 8.8, Phosphorus Level 2.4L, Magnesium Level 1.7L, Total Bilirubin 0.4, Aspartate Amino Transf (AST/SGOT) 55H, Alanine Aminotransferase (ALT/SGPT) 71, Alkaline Phosphatase 120H, C-Reactive Protein, Quantitative 5.5H, Total Protein 7.0, Albumin 3.6, Globulin 3.4, Albumin/ Globulin Ratio 1.1 Height (Feet): 5 Height (Inches): 5.00 Weight (Pounds): 190 General Appearance: alert EENT: normal ENT inspection Neck: normal alignment Cardiovascular: normal peripheral pulses, normal rate, regular rhythm Respiratory/Chest: decreased breath sounds Abdomen: normal bowel sounds, non tender, soft Extremities: normal inspection Edema: no edema noted Arm (L), no edema noted Arm (R), no edema noted Leg (L), no edema noted Leg (R), no edema noted Pedal (L), no edema noted Pedal (R), no edema noted Generalized Neurologic: responsive, motor weakness Skin: normal pigmentation, warm/dry LAURA PERRY Aug 20, 2017 12:24
[2017-08-20] MEDS ORDERED: Azithromycin 250mg tab ORAL ONE (13:00)
[2017-08-20] MEDS: cefTRIAXone 1 GM in NS 55 ML IVPB SCH (14:29)
--- NOTE | 2017-08-20 15:35 | Pulmonology Progress Note ---
Assessment/Plan Problems: (1) Bronchitis (2) Acute viral syndrome (3) Influenza (4) COPD (chronic obstructive pulmonary disease) (5) HTN (hypertension) Assessment/Plan respiratory treatment iv abx check sputum tamiflu symptomatic treatment' titrate fio2 to sat of 92% Subjective ROS Limited/Unobtainable: No Interval Events: doing better Allergies: Coded Allergies: No Known Allergies (Unverified , 10/18/15) Objective Last 24 Hour Vital Signs Date Time Temp Pulse Resp B/P (MAP) Pulse Ox O2 Delivery O2 Flow Rate FiO2 08/20/17 14:18 100.1 08/20/17 12:00 100.7 110 21 130/78 99 Room Air 08/20/17 09:10 80 137/85 08/20/17 08:23 Room Air 08/20/17 08:23 80 18 Room Air 21 08/20/17 08:23 95 Room Air 21 08/20/17 08:15 98.8 97 21 137/85 98 Room Air 08/20/17 04:00 98 Room Air 08/20/17 04:00 99.1 91 21 114/71 98 08/20/17 00:00 99.1 97 21 136/83 97 08/19/17 21:00 99.1 88 21 117/72 99 08/19/17 20:51 96 Room Air 21 08/19/17 20:51 Room Air 21 08/19/17 20:48 85 18 Room Air 21 08/19/17 20:00 99 Room Air 08/19/17 20:00 99.1 88 21 117/72 99 08/19/17 16:07 98.8 94 19 123/65 98 Intake and Output 08/19/17 08/20/17 19:00 07:00 Intake Total 880 ml Balance 880 ml Intake Oral 880 ml # Voids 7 2 Objective General Appearance: WD/WN, no apparent distress Lines, tubes and drains: peripheral, HEENT: normocephalic, atraumatic Neck: non-tender, normal alignment Respiratory/Chest: chest wall non-tender, lungs clear Cardiovascular/Chest: normal peripheral pulses, normal rate Abdomen: normal bowel sounds, non tender Microbiology Date/Time Source Procedure Growth Status 08/18/17 14:54 Blood Blood Culture - Preliminary NO GROWTH AFTER 24 HOURS Resulted 08/18/17 14:54 Blood Blood Culture - Preliminary NO GROWTH AFTER 24 HOURS Resulted 08/19/17 02:45 Sputum Gram Stain - Final Resulted 08/19/17 02:45 Sputum Sputum Culture - Preliminary NORMAL UPPER RESPIRATORY ALDO AT 24 ... Resulted 08/18/17 18:45 Nasal Nares Influenza Types A,B Antigen (DESIREE) - Final Complete Laboratory Tests 08/20/17 10:35: White Blood Count 4.5L, Red Blood Count 4.64, Hemoglobin 13.2, Hematocrit 39.5, Mean Corpuscular Volume 85, Mean Corpuscular Hemoglobin 28.4, Mean Corpuscular Hemoglobin Concent 33.4, Red Cell Distribution Width 11.0L, Platelet Count 190, Mean Platelet Volume 7.4, Neutrophils (%) (Auto) 72.8, Lymphocytes (%) (Auto) 20.9, Monocytes (%) (Auto) 4.4, Eosinophils (%) (Auto) 1.2, Basophils (%) (Auto ) 0.8, Erythrocyte Sedimentation Rate 31H, Sodium Level 139, Potassium Level 3.5 , Chloride Level 103, Carbon Dioxide Level 24, Anion Gap 12, Blood Urea Nitrogen 5L, Creatinine 0.8, Estimat Glomerular Filtration Rate > 60, Glucose Level 102, Calcium Level 8.8, Phosphorus Level 2.4L, Magnesium Level 1.7L, Total Bilirubin 0.4, Aspartate Amino Transf (AST/SGOT) 55H, Alanine Aminotransferase (ALT/SGPT) 71, Alkaline Phosphatase 120H, C-Reactive Protein, Quantitative 5.5H, Total Protein 7.0, Albumin 3.6, Globulin 3.4, Albumin/ Globulin Ratio 1.1 Current Medications Medications (Trade) Dose Ordered Sig/Elena Route PRN Reason Start Time Stop Time Status Last Admin Dose Admin Acetaminophen (Tylenol) 500 mg EVERY 6 HOURS PRN ORAL Mild Pain/Temp > 100.5 08/18/17 22:30 09/17/17 22:29 Acetaminophen (Tylenol) 650 mg Q4H PRN ORAL FEVER 08/18/17 19:15 09/17/17 19:14 08/20/17 13:01 Albuterol/ Ipratropium (Albuterol/ Ipratropium) 3 ml Q4H PRN HHN Shortness of Breath 08/18/17 19:15 08/23/17 19:14 Amlodipine Besylate (Norvasc) 10 mg DAILY ORAL 08/19/17 09:00 09/18/17 08:59 08/20/17 09:10 Aspirin (Ecotrin) 81 mg DAILY ORAL 08/19/17 09:00 09/18/17 08:59 08/20/17 09:10 Azithromycin (Zithromax) 250 mg DAILY ORAL 08/21/17 09:00 08/28/17 08:59 Ceftriaxone Sodium 1 gm/ Sodium Chloride 55 ml @ 110 mls/hr Q24H IVPB 08/20/17 14:00 08/27/17 13:59 08/20/17 14:29 Cetylpyridinium Chloride (Cepacol) 1 lozg EVERY 4 HOURS PRN TONYA For Pain 08/18/17 22:30 09/17/17 22:29 08/18/17 23:18 Dextrose (Dextrose 50%) STAT PRN IV Hypoglycemia 08/18/17 19:15 09/17/17 19:14 Docusate Sodium (Colace) 100 mg TWICE A DAY ORAL 08/20/17 12:00 09/19/17 11:59 08/20/17 11:43 Heparin Sodium (Porcine) (Heparin 5000 units/ml) 5,000 units EVERY 12 HOURS SUBQ 08/18/17 21:00 09/17/17 20:59 08/19/17 08:48 Magnesium Sulfate 100 ml @ 100 mls/hr Q1H IVPB 08/20/17 14:00 08/20/17 15:59 08/20/17 15:21 Morphine Sulfate (Morphine Sulfate) 2 mg Q4H PRN IVP Severe Pain (Pain Scale 7-10) 08/18/17 19:15 08/25/17 19:14 Ondansetron HCl (Zofran) 4 mg Q6H PRN IVP Nausea & Vomiting 08/18/17 19:15 09/17/17 19:14 Oseltamivir Phosphate (Tamiflu) 75 mg TWICE A DAY ORAL 08/19/17 09:00 08/24/17 08:59 08/20/17 09:10 Pantoprazole (Protonix) 40 mg DAILY ORAL 08/19/17 13:00 09/18/17 12:59 08/20/17 09:10 Polyethylene Glycol (Miralax) 17 gm DAILYPRN PRN ORAL Constipation 08/18/17 19:15 09/17/17 19:14 CANDACE TRINH Aug 20, 2017 15:34
[2017-08-20 16:02] VITALS: BP 127/70
--- NOTE | 2017-08-20 17:36 | Cardiology Report ---
APPROVED REPORT EKG Measurement Heart [id number] Normal sinus rhythm Septal infarct, age undetermined Abnormal ECG
[2017-08-20 20:00] VITALS: BP 140/80
--- NOTE | 2017-08-20 20:40 | Cardiology Progress Note ---
Assessment/Plan Assessment/Plan 1. Sinus tachycardia, likely secondary to underlying infection/influenza A disease/hypovolemia. The treatment is aggressive hydration, pain control, and control of fever with antipyretics. At this time, the patient does not require any AV kevan agents. 2. History of hypertension, continue amlodipine. 3. Influenza A virus infection. 4. Chronic obstructive pulmonary disease. Subjective Subjective Transferred out of the telemetry unit. No active cardiac issues. Objective Last 24 Hour Vital Signs Date Time Temp Pulse Resp B/P (MAP) Pulse Ox O2 Delivery O2 Flow Rate FiO2 08/20/17 16:02 98.5 98 23 127/70 97 Room Air 08/20/17 14:18 100.1 08/20/17 12:00 100.7 110 21 130/78 99 Room Air 08/20/17 09:10 80 137/85 08/20/17 08:23 Room Air 08/20/17 08:23 80 18 Room Air 21 08/20/17 08:23 95 Room Air 21 08/20/17 08:15 98.8 97 21 137/85 98 Room Air 08/20/17 04:00 98 Room Air 08/20/17 04:00 99.1 91 21 114/71 98 08/20/17 00:00 99.1 97 21 136/83 97 08/19/17 21:00 99.1 88 21 117/72 99 08/19/17 20:51 96 Room Air 21 08/19/17 20:51 Room Air 21 08/19/17 20:48 85 18 Room Air 21 Intake and Output 08/19/17 08/20/17 19:00 07:00 Intake Total 880 ml Balance 880 ml Intake Oral 880 ml # Voids 7 2 Laboratory Tests Test 08/20/17 10:35 White Blood Count 4.5 K/UL (4.8-10.8) L Red Blood Count 4.64 M/UL (4.20-5.40) Hemoglobin 13.2 G/DL (12.0-16.0) Hematocrit 39.5 % (37.0-47.0) Mean Corpuscular Volume 85 FL (80-99) Mean Corpuscular Hemoglobin 28.4 PG (27.0-31.0) Mean Corpuscular Hemoglobin Concent 33.4 G/DL (32.0-36.0) Red Cell Distribution Width 11.0 % (11.6-14.8) L Platelet Count 190 K/UL (150-450) Mean Platelet Volume 7.4 FL (6.5-10.1) Neutrophils (%) (Auto) 72.8 % (45.0-75.0) Lymphocytes (%) (Auto) 20.9 % (20.0-45.0) Monocytes (%) (Auto) 4.4 % (1.0-10.0) Eosinophils (%) (Auto) 1.2 % (0.0-3.0) Basophils (%) (Auto) 0.8 % (0.0-2.0) Erythrocyte Sedimentation Rate 31 MM/HR (0-30) H Sodium Level 139 MMOL/L (136-145) Potassium Level 3.5 MMOL/L (3.5-5.1) Chloride Level 103 MMOL/L (98-107) Carbon Dioxide Level 24 MMOL/L (21-32) Anion Gap 12 mmol/L (5-15) Blood Urea Nitrogen 5 mg/dL (7-18) L Creatinine 0.8 MG/DL (0.55-1.30) Estimat Glomerular Filtration Rate > 60 mL/min (>60) Glucose Level 102 MG/DL (74-106) Calcium Level 8.8 MG/DL (8.5-10.1) Phosphorus Level 2.4 MG/DL (2.5-4.9) L Magnesium Level 1.7 MG/DL (1.8-2.4) L Total Bilirubin 0.4 MG/DL (0.2-1.0) Aspartate Amino Transf (AST/SGOT) 55 U/L (15-37) H Alanine Aminotransferase (ALT/SGPT) 71 U/L (12-78) Alkaline Phosphatase 120 U/L (46-116) H C-Reactive Protein, Quantitative 5.5 mg/dL (0.00-0.90) H Total Protein 7.0 G/DL (6.4-8.2) Albumin 3.6 G/DL (3.4-5.0) Globulin 3.4 g/dL Albumin/Globulin Ratio 1.1 (1.0-2.7) Microbiology Date/Time Source Procedure Growth Status 08/18/17 14:54 Blood Blood Culture - Preliminary NO GROWTH AFTER 24 HOURS Resulted 08/18/17 14:54 Blood Blood Culture - Preliminary NO GROWTH AFTER 24 HOURS Resulted 08/19/17 02:45 Sputum Gram Stain - Final Resulted 08/19/17 02:45 Sputum Sputum Culture - Preliminary NORMAL UPPER RESPIRATORY ALDO AT 24 ... Resulted 08/18/17 18:45 Nasal Nares Influenza Types A,B Antigen (DESIREE) - Final Complete Objective HEENT: Atraumatic and normocephalic. Anicteric. Pupils are equal, round, and reactive to light and accommodation. Extraocular muscles intact. NECK: JVP less than 5 cm. No carotid bruits. Carotid upstrokes 2+ bilaterally. CVS: Normal S1 and S2. Regular rate and rhythm. No murmurs, gallops, or rubs. PMI is at fourth intercostal space at the midclavicular line. LUNGS: Clear to auscultation bilaterally. ABDOMEN: Soft, nontender, and nondistended. No hepatosplenomegaly. Positive bowel sounds. EXTREMITIES: No evidence of edema, clubbing, or cyanosis. MANDA QUINONES Aug 20, 2017 20:39
--- NOTE | 2017-08-20 22:32 | Consultation ---
DATE OF CONSULTATION: 08/19/2017 CARDIOLOGY CONSULTATION CONSULTING PHYSICIAN: Wild Greer M.D. REFERRING PHYSICIAN: Santiago Anders D.O. REASON FOR CONSULTATION: Management of tachycardia. HISTORY OF PRESENT ILLNESS: The patient is a very unfortunate 61-year-old lady, who presented to the emergency department with cough, nasal congestion, sore throat, myalgia, fever and chills, and headache for about a week. According to her, she was tested positive for influenza at outside hospital emergency department about three days prior to this admission and was started on Tamiflu yesterday. She states that her cough has gotten worse and continues to have fever, neck pain and stiffness, irritability, photophobia, nausea, vomiting, and diaphoresis. The patient's initial vital signs in the emergency department was blood pressure of 126/64 and a pulse of 114. She was febrile at 99.9 degrees Fahrenheit. Cardiology consultation was made at the request of Dr. Anders for management of tachycardia. At the time of observation, the patient was calm and comfortable. Denied any chest pain, shortness of breath, or palpitation. PAST MEDICAL HISTORY: Significant for hypertension, asthma/chronic obstructive pulmonary disease, gastroesophageal reflux disease, history of tremors, and history of headaches. PAST SURGICAL HISTORY: None. MEDICATIONS: List of medications at home included amlodipine 10 mg p.o. daily, aspirin 81 mg daily, atenolol 50 mg daily, Colace 100 mg p.o. twice daily, ertapenem 1 g IM daily, Invanz 1 g IV piggyback q. 24 hours, guaifenesin 10 mL q.4 hours, Motrin 600 mg q.8 hours p.r.n. pain, omeprazole 20 mg p.o. daily, Protonix 40 mg p.o. daily, penicillin V, potassium 500 mg p.o. twice daily, and prednisone 60 mg p.o. daily. ALLERGIES: No known drug allergies. FAMILY HISTORY: No premature coronary artery disease in the first-degree relatives. REVIEW OF SYSTEMS: CONSTITUTIONAL: Had fever and chills as well as generalized body pain and diaphoresis. HEENT: Had headaches, dizziness, and lightheadedness. CVS: Denies any chest pain or shortness of breath. Denies any PND, orthopnea, leg swelling, or syncope. PULMONARY: Denies any shortness of breath. Has had cough and wheezing. GASTROINTESTINAL: He had some nausea and vomiting with this event, but no gastrointestinal bleed, diarrhea, or constipation. GENITOURINARY: Denies any hematuria, dysuria, or incontinence. NEUROLOGY: Denies any motor dysfunction, sensory deficit, or altered speech. PHYSICAL EXAMINATION: VITAL SIGNS: Blood pressure at the time of arrival to the hospital was 126/64, respirations of 18, pulse of 114, temperature 99.9 degrees Fahrenheit, and O2 saturation 95% on room air. GENERAL: The patient is a very pleasant 61-year-old lady, in no apparent respiratory distress. Awake, alert, and oriented. HEENT: Atraumatic and normocephalic. Anicteric. Pupils are equal, round, and reactive to light and accommodation. Extraocular muscles intact. NECK: JVP less than 5 cm. No carotid bruits. Carotid upstrokes 2+ bilaterally. CVS: Normal S1 and S2. Regular rate and rhythm. No murmurs, gallops, or rubs. PMI is at fourth intercostal space at the midclavicular line. LUNGS: Clear to auscultation bilaterally. ABDOMEN: Soft, nontender, and nondistended. No hepatosplenomegaly. Positive bowel sounds. EXTREMITIES: No evidence of edema, clubbing, or cyanosis. LABORATORY FINDINGS: Sodium was 137, potassium 3.6, chloride 104, bicarbonate 24, BUN of 5, creatinine 0.8, glucose 99, and calcium is 9.3. Troponin I was 0.0. WBC is 4.6, hemoglobin was 13.4, hematocrit of 39.3, and platelet count is 191,000. DIAGNOSTIC DATA: Chest x-ray showed no acute cardiopulmonary disease. A 12-lead electrocardiogram was significant for sinus rhythm at a rate of 92 with normal QT interval and septal infarct, age indeterminate. ASSESSMENT AND PLAN: The patient is a very unfortunate 61-year-old lady, who is seen in Cardiology consultation at the request of Dr. Anders. 1. Sinus tachycardia, likely secondary to underlying infection/influenza A disease/hypovolemia. The treatment is aggressive hydration, pain control, and control of fever with antipyretics. At this time, the patient does not require any AV kevan agents. 2. History of hypertension. The patient is on amlodipine 10 mg daily. 3. Influenza A virus infection. 4. Chronic obstructive pulmonary disease. I would like to thank, Dr. Anders, for the courtesy of this consultation. Wild Greer M.D. DR: BELIA JOB#: [id number] CC:
[2017-08-21] VITALS: BP 123/67
[2017-08-21 04:00] VITALS: BP 110/74
[2017-08-21 07:07] LABS: BASOPHILS % (AUTO) 0.8 % (0.0-2.0); EOSINOPHILS % (AUTO) 3.4 % (0.0-3.0); HEMATOCRIT 37.4 % (37.0-47.0); HEMOGLOBIN 13.3 G/DL (12.0-16.0); LYMPHOCYTES % (AUTO) 27.4 % (20.0-45.0); MEAN CORPUSCULAR VOLUME 86 FL (80-99); MONOCYTES % (AUTO) 5.8 % (1.0-10.0); NEUTROPHILS % (AUTO) 62.6 % (45.0-75.0); PLATELET COUNT 186 K/UL (150-450); RED BLOOD COUNT 4.37 M/UL (4.20-5.40); RED CELL DISTRIBUTION WIDTH 11.2 % (11.6-14.8); WHITE BLOOD COUNT 3.8 K/UL (4.8-10.8)
[2017-08-21 07:35] LABS: ANION GAP 7 mmol/L (5-15); BLOOD UREA NITROGEN 5 mg/dL (7-18); CALCIUM 8.8 MG/DL (8.5-10.1); CARBON DIOXIDE 29 MMOL/L (21-32); CHLORIDE 105 MMOL/L (98-107); CREATININE 0.8 MG/DL (0.55-1.30); POTASSIUM 3.4 MMOL/L (3.5-5.1); SODIUM 141 MMOL/L (136-145)
[2017-08-21 08:00] VITALS: BP 148/98
--- NOTE | 2017-08-21 08:44 | Cardiology Progress Note ---
Assessment/Plan Assessment/Plan 1. Sinus tachycardia, better heart rate, likely secondary to underlying infection/influenza A disease/hypovolemia. The treatment is aggressive hydration, pain control, and control of fever with antipyretics. No AV kevan agents required at this time. 2. History of hypertension, continue amlodipine. 3. Influenza A virus infection. 4. Chronic obstructive pulmonary disease. Subjective Subjective Denies chest pain or SOB. No active cardiac issues. Objective Last 24 Hour Vital Signs Date Time Temp Pulse Resp B/P (MAP) Pulse Ox O2 Delivery O2 Flow Rate FiO2 08/21/17 04:00 98.3 98 20 110/74 98 08/21/17 00:00 98.6 86 21 123/67 100 08/20/17 20:00 98.7 91 21 140/80 98 08/20/17 19:08 94 Room Air 21 08/20/17 19:08 Room Air 21 08/20/17 19:08 84 20 Room Air 21 08/20/17 16:02 98.5 98 23 127/70 97 Room Air 08/20/17 14:18 100.1 08/20/17 12:00 100.7 110 21 130/78 99 Room Air 08/20/17 09:10 80 137/85 Intake and Output 08/20/17 08/21/17 19:00 07:00 Intake Total 1215 ml 480 ml Balance 1215 ml 480 ml Intake Oral 960 ml 480 ml IV Total 255 ml # Voids 3 2 Laboratory Tests Test 08/20/17 10:35 08/21/17 06:45 White Blood Count 4.5 K/UL (4.8-10.8) L 3.8 K/UL (4.8-10.8) L Red Blood Count 4.64 M/UL (4.20-5.40) 4.37 M/UL (4.20-5.40) Hemoglobin 13.2 G/DL (12.0-16.0) 13.3 G/DL (12.0-16.0) Hematocrit 39.5 % (37.0-47.0) 37.4 % (37.0-47.0) Mean Corpuscular Volume 85 FL (80-99) 86 FL (80-99) Mean Corpuscular Hemoglobin 28.4 PG (27.0-31.0) 30.5 PG (27.0-31.0) Mean Corpuscular Hemoglobin Concent 33.4 G/DL (32.0-36.0) 35.6 G/DL (32.0-36.0) Red Cell Distribution Width 11.0 % (11.6-14.8) L 11.2 % (11.6-14.8) L Platelet Count 190 K/UL (150-450) 186 K/UL (150-450) Mean Platelet Volume 7.4 FL (6.5-10.1) 7.6 FL (6.5-10.1) Neutrophils (%) (Auto) 72.8 % (45.0-75.0) 62.6 % (45.0-75.0) Lymphocytes (%) (Auto) 20.9 % (20.0-45.0) 27.4 % (20.0-45.0) Monocytes (%) (Auto) 4.4 % (1.0-10.0) 5.8 % (1.0-10.0) Eosinophils (%) (Auto) 1.2 % (0.0-3.0) 3.4 % (0.0-3.0) H Basophils (%) (Auto) 0.8 % (0.0-2.0) 0.8 % (0.0-2.0) Erythrocyte Sedimentation Rate 31 MM/HR (0-30) H Sodium Level 139 MMOL/L (136-145) 141 MMOL/L (136-145) Potassium Level 3.5 MMOL/L (3.5-5.1) 3.4 MMOL/L (3.5-5.1) L Chloride Level 103 MMOL/L (98-107) 105 MMOL/L (98-107) Carbon Dioxide Level 24 MMOL/L (21-32) 29 MMOL/L (21-32) Anion Gap 12 mmol/L (5-15) 7 mmol/L (5-15) Blood Urea Nitrogen 5 mg/dL (7-18) L 5 mg/dL (7-18) L Creatinine 0.8 MG/DL (0.55-1.30) 0.8 MG/DL (0.55-1.30) Estimat Glomerular Filtration Rate > 60 mL/min (>60) > 60 mL/min (>60) Glucose Level 102 MG/DL (74-106) 117 MG/DL (74-106) H Calcium Level 8.8 MG/DL (8.5-10.1) 8.8 MG/DL (8.5-10.1) Phosphorus Level 2.4 MG/DL (2.5-4.9) L Magnesium Level 1.7 MG/DL (1.8-2.4) L Total Bilirubin 0.4 MG/DL (0.2-1.0) Aspartate Amino Transf (AST/SGOT) 55 U/L (15-37) H Alanine Aminotransferase (ALT/SGPT) 71 U/L (12-78) Alkaline Phosphatase 120 U/L (46-116) H C-Reactive Protein, Quantitative 5.5 mg/dL (0.00-0.90) H Total Protein 7.0 G/DL (6.4-8.2) Albumin 3.6 G/DL (3.4-5.0) Globulin 3.4 g/dL Albumin/Globulin Ratio 1.1 (1.0-2.7) Microbiology Date/Time Source Procedure Growth Status 08/18/17 14:54 Blood Blood Culture - Preliminary NO GROWTH AFTER 48 HOURS Resulted 08/18/17 14:54 Blood Blood Culture - Preliminary NO GROWTH AFTER 48 HOURS Resulted 08/19/17 02:45 Sputum Gram Stain - Final Complete 08/19/17 02:45 Sputum Sputum Culture - Final NORMAL UPPER RESPIRATORY ALDO PRESENT Complete 08/18/17 18:45 Nasal Nares Influenza Types A,B Antigen (DESIREE) - Final Complete Objective HEENT: Atraumatic and normocephalic. Anicteric. Pupils are equal, round, and reactive to light and accommodation. Extraocular muscles intact. NECK: JVP less than 5 cm. No carotid bruits. Carotid upstrokes 2+ bilaterally. CVS: Normal S1 and S2. Regular rate and rhythm. No murmurs, gallops, or rubs. PMI is at fourth intercostal space at the midclavicular line. LUNGS: Clear to auscultation bilaterally. ABDOMEN: Soft, nontender, and nondistended. No hepatosplenomegaly. Positive bowel sounds. EXTREMITIES: No evidence of edema, clubbing, or cyanosis. MANDA UQINONES Aug 21, 2017 08:44
[2017-08-21] MEDS: Heparin 5000 units/ml inj SUBQ SCH (08:51)
[2017-08-21] MEDS: Aspirin EC 81mg tab ORAL SCH (08:51)
[2017-08-21] MEDS: Docusate 100mg cap ORAL SCH ×2 (08:52→17:12)
[2017-08-21] MEDS: Oseltamivir 75mg cap ORAL SCH ×2 (08:57→17:15)
[2017-08-21] MEDS ORDERED: Azithromycin 250mg tab ORAL SCH (09:00)
[2017-08-21 12:00] VITALS: BP 142/88
--- NOTE | 2017-08-21 12:48 | Infectious Diseases Prog Note ---
Assessment/Plan Assessment/Plan A; Influenza A Bronchitis COPD Fever resolving P: Continue Tamiflu, Zithromax & Rocephin Subjective ROS Limited/Unobtainable: No Constitutional: Reports: other - doing better Respiratory: Reports: productive cough Cardiovascular: Reports: no symptoms Gastrointestinal/Abdominal: Reports: no symptoms Genitourinary: Reports: no symptoms Neurologic: Reports: no symptoms Allergies: Coded Allergies: No Known Allergies (Unverified , 10/18/15) Objective Vital Signs Last 24 Hour Vital Signs Date Time Temp Pulse Resp B/P (MAP) Pulse Ox O2 Delivery O2 Flow Rate FiO2 08/21/17 08:52 71 147/78 08/21/17 08:00 99.3 112 20 148/98 95 08/21/17 04:00 98.3 98 20 110/74 98 08/21/17 00:00 98.6 86 21 123/67 100 08/20/17 20:00 98.7 91 21 140/80 98 08/20/17 19:08 94 Room Air 21 08/20/17 19:08 Room Air 21 08/20/17 19:08 84 20 Room Air 21 08/20/17 16:02 98.5 98 23 127/70 97 Room Air 08/20/17 14:18 100.1 Height (Feet): 5 Height (Inches): 5.00 Weight (Pounds): 190 General Appearance: no acute distress HEENT: mucous membranes moist Respiratory/Chest: lungs clear Cardiovascular: normal rate Abdomen: soft, non tender Extremities: no edema Neurologic/Psychiatric: alert, oriented x 3, responsive Microbiology Date/Time Source Procedure Growth Status 08/18/17 14:54 Blood Blood Culture - Preliminary NO GROWTH AFTER 48 HOURS Resulted 08/18/17 14:54 Blood Blood Culture - Preliminary NO GROWTH AFTER 48 HOURS Resulted 08/19/17 02:45 Sputum Gram Stain - Final Complete 08/19/17 02:45 Sputum Sputum Culture - Final NORMAL UPPER RESPIRATORY ALDO PRESENT Complete 08/18/17 18:45 Nasal Nares Influenza Types A,B Antigen (DESIREE) - Final Complete Laboratory Tests Test 08/21/17 06:45 White Blood Count 3.8 K/UL (4.8-10.8) L Red Blood Count 4.37 M/UL (4.20-5.40) Hemoglobin 13.3 G/DL (12.0-16.0) Hematocrit 37.4 % (37.0-47.0) Mean Corpuscular Volume 86 FL (80-99) Mean Corpuscular Hemoglobin 30.5 PG (27.0-31.0) Mean Corpuscular Hemoglobin Concent 35.6 G/DL (32.0-36.0) Red Cell Distribution Width 11.2 % (11.6-14.8) L Platelet Count 186 K/UL (150-450) Mean Platelet Volume 7.6 FL (6.5-10.1) Neutrophils (%) (Auto) 62.6 % (45.0-75.0) Lymphocytes (%) (Auto) 27.4 % (20.0-45.0) Monocytes (%) (Auto) 5.8 % (1.0-10.0) Eosinophils (%) (Auto) 3.4 % (0.0-3.0) H Basophils (%) (Auto) 0.8 % (0.0-2.0) Sodium Level 141 MMOL/L (136-145) Potassium Level 3.4 MMOL/L (3.5-5.1) L Chloride Level 105 MMOL/L (98-107) Carbon Dioxide Level 29 MMOL/L (21-32) Anion Gap 7 mmol/L (5-15) Blood Urea Nitrogen 5 mg/dL (7-18) L Creatinine 0.8 MG/DL (0.55-1.30) Estimat Glomerular Filtration Rate > 60 mL/min (>60) Glucose Level 117 MG/DL (74-106) H Calcium Level 8.8 MG/DL (8.5-10.1) Current Medications Medications (Trade) Dose Ordered Sig/Elena Route PRN Reason Start Time Stop Time Status Last Admin Dose Admin Acetaminophen (Tylenol) 500 mg EVERY 6 HOURS PRN ORAL Mild Pain/Temp > 100.5 08/18/17 22:30 09/17/17 22:29 Acetaminophen (Tylenol) 650 mg Q4H PRN ORAL FEVER 08/18/17 19:15 09/17/17 19:14 08/21/17 08:58 Albuterol/ Ipratropium (Albuterol/ Ipratropium) 3 ml Q4H PRN HHN Shortness of Breath 08/18/17 19:15 08/23/17 19:14 Amlodipine Besylate (Norvasc) 10 mg DAILY ORAL 08/19/17 09:00 09/18/17 08:59 08/21/17 08:52 Aspirin (Ecotrin) 81 mg DAILY ORAL 08/19/17 09:00 09/18/17 08:59 08/21/17 08:51 Azithromycin (Zithromax) 250 mg DAILY ORAL 08/21/17 09:00 08/28/17 08:59 08/21/17 08:51 Ceftriaxone Sodium 1 gm/ Sodium Chloride 55 ml @ 110 mls/hr Q24H IVPB 08/20/17 14:00 08/27/17 13:59 08/20/17 14:29 Cetylpyridinium Chloride (Cepacol) 1 lozg EVERY 4 HOURS PRN TONYA For Pain 08/18/17 22:30 09/17/17 22:29 08/21/17 08:52 Dextrose (Dextrose 50%) STAT PRN IV Hypoglycemia 08/18/17 19:15 09/17/17 19:14 Docusate Sodium (Colace) 100 mg TWICE A DAY ORAL 08/20/17 12:00 09/19/17 11:59 08/21/17 08:52 Heparin Sodium (Porcine) (Heparin 5000 units/ml) 5,000 units EVERY 12 HOURS SUBQ 08/18/17 21:00 09/17/17 20:59 08/19/17 08:48 Morphine Sulfate (Morphine Sulfate) 2 mg Q4H PRN IVP Severe Pain (Pain Scale 7-10) 08/18/17 19:15 08/25/17 19:14 Ondansetron HCl (Zofran) 4 mg Q6H PRN IVP Nausea & Vomiting 08/18/17 19:15 09/17/17 19:14 Oseltamivir Phosphate (Tamiflu) 75 mg TWICE A DAY ORAL 08/19/17 09:00 08/24/17 08:59 08/21/17 08:57 Pantoprazole (Protonix) 40 mg DAILY ORAL 08/19/17 13:00 09/18/17 12:59 08/21/17 08:51 Polyethylene Glycol (Miralax) 17 gm DAILYPRN PRN ORAL Constipation 08/18/17 19:15 09/17/17 19:14 MELANIA BAUTISTA Aug 21, 2017 12:48
--- NOTE | 2017-08-21 13:33 | General Progress Note ---
Assessment/Plan Problem List: (1) ACS (acute coronary syndrome) ICD Codes: I24.9 - Acute ischemic heart disease, unspecified SNOMED: 789755265 (2) Hypertension ICD Codes: I10 - Essential (primary) hypertension SNOMED: 22007360 (3) Sore throat ICD Codes: J02.9 - Acute pharyngitis, unspecified SNOMED: 195656851 (4) GERD (gastroesophageal reflux disease) ICD Codes: K21.9 - Gastro-esophageal reflux disease without esophagitis SNOMED: 257892551 (5) Shortness of breath ICD Codes: R06.02 - Shortness of breath SNOMED: 383873032 (6) COPD (chronic obstructive pulmonary disease) ICD Codes: J44.9 - Chronic obstructive pulmonary disease, unspecified SNOMED: 43359819 Status: unchanged Assessment/Plan o2 pulm tx abx ot pt dit cbc bmp am dc plan Subjective Constitutional: Reports: weakness Allergies: Coded Allergies: No Known Allergies (Unverified , 10/18/15) All Systems: reviewed and negative except above Subjective sl sob cough Objective Last 24 Hour Vital Signs Date Time Temp Pulse Resp B/P (MAP) Pulse Ox O2 Delivery O2 Flow Rate FiO2 08/21/17 12:00 98.8 99 20 142/88 97 08/21/17 08:52 71 147/78 08/21/17 08:00 99.3 112 20 148/98 95 08/21/17 04:00 98.3 98 20 110/74 98 08/21/17 00:00 98.6 86 21 123/67 100 08/20/17 20:00 98.7 91 21 140/80 98 08/20/17 19:08 94 Room Air 21 08/20/17 19:08 Room Air 21 08/20/17 19:08 84 20 Room Air 21 08/20/17 16:02 98.5 98 23 127/70 97 Room Air 08/20/17 14:18 100.1 Intake and Output 08/20/17 08/21/17 19:00 07:00 Intake Total 1215 ml 480 ml Balance 1215 ml 480 ml Intake Oral 960 ml 480 ml IV Total 255 ml # Voids 3 2 Laboratory Tests 08/21/17 06:45: White Blood Count 3.8L, Red Blood Count 4.37, Hemoglobin 13.3, Hematocrit 37.4, Mean Corpuscular Volume 86, Mean Corpuscular Hemoglobin 30.5, Mean Corpuscular Hemoglobin Concent 35.6, Red Cell Distribution Width 11.2L, Platelet Count 186, Mean Platelet Volume 7.6, Neutrophils (%) (Auto) 62.6, Lymphocytes (%) (Auto) 27.4, Monocytes (%) (Auto) 5.8, Eosinophils (%) (Auto) 3.4H, Basophils (%) (Auto ) 0.8, Sodium Level 141, Potassium Level 3.4L, Chloride Level 105, Carbon Dioxide Level 29, Anion Gap 7, Blood Urea Nitrogen 5L, Creatinine 0.8, Estimat Glomerular Filtration Rate > 60, Glucose Level 117H, Calcium Level 8.8 Height (Feet): 5 Height (Inches): 5.00 Weight (Pounds): 190 General Appearance: lethargic EENT: PERRL/EOMI Neck: normal alignment Cardiovascular: normal peripheral pulses, normal rate, regular rhythm Respiratory/Chest: decreased breath sounds Abdomen: normal bowel sounds, non tender, soft Extremities: normal inspection Edema: no edema noted Arm (L), no edema noted Arm (R), no edema noted Leg (L), no edema noted Leg (R), no edema noted Pedal (L), no edema noted Pedal (R), no edema noted Generalized Neurologic: responsive, motor weakness Skin: normal pigmentation, warm/dry LAURA PERRY Aug 21, 2017 13:32
[2017-08-21] MEDS: cefTRIAXone 1 GM in NS 55 ML IVPB SCH (13:42)
[2017-08-21 16:51] VITALS: BP 129/73
--- NOTE | 2017-08-21 18:06 | Pulmonology Progress Note ---
Assessment/Plan Problems: (1) Bronchitis (2) Acute viral syndrome (3) Influenza (4) COPD (chronic obstructive pulmonary disease) (5) HTN (hypertension) Assessment/Plan improivng no new complains respiratory treatment iv abx check sputum tamiflu symptomatic treatment' titrate fio2 to sat of 92% Subjective ROS Limited/Unobtainable: No Constitutional: Reports: no symptoms HEENT: Repors: no symptoms Respiratory: Reports: no symptoms Allergies: Coded Allergies: No Known Allergies (Unverified , 10/18/15) Objective Last 24 Hour Vital Signs Date Time Temp Pulse Resp B/P (MAP) Pulse Ox O2 Delivery O2 Flow Rate FiO2 08/21/17 16:51 97.5 92 16 129/73 98 Room Air 08/21/17 14:26 83 18 Room Air 21 08/21/17 14:26 Room Air 21 08/21/17 14:26 97 Room Air 21 08/21/17 12:00 98.8 99 20 142/88 97 08/21/17 08:52 71 147/78 08/21/17 08:00 99.3 112 20 148/98 95 08/21/17 04:00 98.3 98 20 110/74 98 08/21/17 00:00 98.6 86 21 123/67 100 08/20/17 20:00 98.7 91 21 140/80 98 08/20/17 19:08 94 Room Air 21 08/20/17 19:08 Room Air 21 08/20/17 19:08 84 20 Room Air 21 Intake and Output 08/20/17 08/21/17 19:00 07:00 Intake Total 1215 ml 480 ml Balance 1215 ml 480 ml Intake Oral 960 ml 480 ml IV Total 255 ml # Voids 3 2 Objective General Appearance: WD/WN, no apparent distress Lines, tubes and drains: peripheral, HEENT: normocephalic, atraumatic Neck: non-tender, normal alignment Respiratory/Chest: chest wall non-tender, lungs clear Cardiovascular/Chest: normal peripheral pulses, normal rate Abdomen: normal bowel sounds, non tender Microbiology Date/Time Source Procedure Growth Status 08/19/17 02:45 Sputum Gram Stain - Final Complete 08/19/17 02:45 Sputum Sputum Culture - Final NORMAL UPPER RESPIRATORY ALDO PRESENT Complete 08/18/17 18:45 Nasal Nares Influenza Types A,B Antigen (DESIREE) - Final Complete Laboratory Tests 08/21/17 06:45: White Blood Count 3.8L, Red Blood Count 4.37, Hemoglobin 13.3, Hematocrit 37.4, Mean Corpuscular Volume 86, Mean Corpuscular Hemoglobin 30.5, Mean Corpuscular Hemoglobin Concent 35.6, Red Cell Distribution Width 11.2L, Platelet Count 186, Mean Platelet Volume 7.6, Neutrophils (%) (Auto) 62.6, Lymphocytes (%) (Auto) 27.4, Monocytes (%) (Auto) 5.8, Eosinophils (%) (Auto) 3.4H, Basophils (%) (Auto ) 0.8, Sodium Level 141, Potassium Level 3.4L, Chloride Level 105, Carbon Dioxide Level 29, Anion Gap 7, Blood Urea Nitrogen 5L, Creatinine 0.8, Estimat Glomerular Filtration Rate > 60, Glucose Level 117H, Calcium Level 8.8 Current Medications Medications (Trade) Dose Ordered Sig/Elena Route PRN Reason Start Time Stop Time Status Last Admin Dose Admin Acetaminophen (Tylenol) 500 mg EVERY 6 HOURS PRN ORAL Mild Pain/Temp > 100.5 08/18/17 22:30 09/17/17 22:29 Acetaminophen (Tylenol) 650 mg Q4H PRN ORAL FEVER 08/18/17 19:15 09/17/17 19:14 08/21/17 08:58 Albuterol/ Ipratropium (Albuterol/ Ipratropium) 3 ml Q4H PRN HHN Shortness of Breath 08/18/17 19:15 08/23/17 19:14 Amlodipine Besylate (Norvasc) 10 mg DAILY ORAL 08/19/17 09:00 09/18/17 08:59 08/21/17 08:52 Aspirin (Ecotrin) 81 mg DAILY ORAL 08/19/17 09:00 09/18/17 08:59 08/21/17 08:51 Azithromycin (Zithromax) 250 mg DAILY ORAL 08/21/17 09:00 08/28/17 08:59 08/21/17 08:51 Ceftriaxone Sodium 1 gm/ Sodium Chloride 55 ml @ 110 mls/hr Q24H IVPB 08/20/17 14:00 08/27/17 13:59 08/21/17 13:42 Cetylpyridinium Chloride (Cepacol) 1 lozg EVERY 4 HOURS PRN TONYA For Pain 08/18/17 22:30 09/17/17 22:29 08/21/17 08:52 Dextrose (Dextrose 50%) STAT PRN IV Hypoglycemia 08/18/17 19:15 09/17/17 19:14 Docusate Sodium (Colace) 100 mg TWICE A DAY ORAL 08/20/17 12:00 09/19/17 11:59 08/21/17 08:52 Heparin Sodium (Porcine) (Heparin 5000 units/ml) 5,000 units EVERY 12 HOURS SUBQ 08/18/17 21:00 09/17/17 20:59 08/19/17 08:48 Morphine Sulfate (Morphine Sulfate) 2 mg Q4H PRN IVP Severe Pain (Pain Scale 7-10) 08/18/17 19:15 08/25/17 19:14 Ondansetron HCl (Zofran) 4 mg Q6H PRN IVP Nausea & Vomiting 08/18/17 19:15 09/17/17 19:14 Oseltamivir Phosphate (Tamiflu) 75 mg TWICE A DAY ORAL 08/19/17 09:00 08/24/17 08:59 08/21/17 17:15 Pantoprazole (Protonix) 40 mg DAILY ORAL 08/19/17 13:00 09/18/17 12:59 08/21/17 08:51 Polyethylene Glycol (Miralax) 17 gm DAILYPRN PRN ORAL Constipation 08/18/17 19:15 09/17/17 19:14 CANDACE TRINH Aug 21, 2017 18:06
[2017-08-21] MEDS ORDERED: Tubing IV Secondary IV ONE (19:19)
[2017-08-21] MEDS ORDERED: NS 275ml ONE (19:19)
--- NOTE | 2017-08-22 13:05 | Discharge Summary ---
Discharge Summary Hospital Course Date of Admission Aug 18, 2017 at 14:08 Date of Discharge Aug 21, 2017 at 19:20 Admitting Diagnosis influenza HPI Kyara Lowe is a 61 year old female who was admitted on Aug 18, 2017 at 14:08 for Influenza Hospital Course [id number] Discharge Discharge Disposition Patient was discharged to Home (01) Discharge Diagnoses: Abbie Jackson NP Aug 22, 2017 13:05
--- NOTE | 2017-08-23 04:45 | Discharge Summary 2 SIG ---
DATE OF ADMISSION: 08/18/2017 DATE OF DISCHARGE: 08/21/2017 CONSULTANTS: 1. Judah Posada M.D. 2. Servando Schneider M.D. 3. Wild Greer M.D. BRIEF HOSPITAL COURSE: The patient is a 61-year-old female who lives at home, presented to [place] for complaints of cough, shortness of breath, and chest pain. She apparently has upper respiratory symptoms for about a month and was treated initially with antibiotic, apparently was refractory. In the ER, she came in tachycardic with heart rate of 114 and temperature was 99.9. She stated that she tested positive for influenza three days ago and was started on Tamiflu. At ED, blood work did not show leukocytosis. Chest x-ray with no acute disease. She was then admitted to the medical floor for evaluation of flu-like symptoms, chest pain, and possible UTI. She was continued on Tamiflu. Vancomycin and cefepime were discontinued. Influenza test done was negative, although she had a positive test in an outside facility. Blood culture did not isolate any growth. Sputum with normal upper respiratory reyes. She was also given Zithromax and Rocephin. She was seen by Dr. Greer. Tachycardia was secondary to underlying infection. She was given aggressive IV hydration. A 12-lead EKG was in sinus rhythm at a rate of 92 with normal QT interval and septal infarct, age indeterminate. She was continued on Norvasc 10 mg daily. Troponin was negative. She was given respiratory treatment and was saturating well on room air. She was eventually discharged home to follow up as an outpatient. FINAL DIAGNOSES: 1. Acute viral infection. 2. Acute bronchitis. 3. Influenza A. 4. Hypertension. 5. Acute chronic obstructive pulmonary disease in exacerbation. 6. Gastroesophageal reflux disease. 7. Hypertension. 8. Sinus tachycardia secondary to infection. 9. Hypertension. DISPOSITION: The patient was discharged home. DISCHARGE MEDICATIONS: Refer to medication list. DISCHARGE INSTRUCTIONS: Follow up as outpatient in a week. Santiago Anders D.O. I have been assigned to dictate discharge summary on this account and I was not involved in the patient's management. Abbie Jackson N.P. DR: Samuel JOB#: [id number] CC:
== END 2017-08-21 19:20 | disposition home or self-care (01) | DRG 194 ==
LOC: EMR 13:38 → 4E 14:08 → EDBEDREQ 14:27
DX: J10.1 Influenza due to other identified influenza virus with other respiratory manifestations (principal); J44.1 Chronic obstructive pulmonary disease with (acute) exacerbation; I24.9 Acute ischemic heart disease, unspecified; J44.0 Chronic obstructive pulmonary disease with (acute) lower respiratory infection; J20.9 Acute bronchitis, unspecified; I10 Essential (primary) hypertension; B97.89 Other viral agents as the cause of diseases classified elsewhere; K21.9 Gastro-esophageal reflux disease without esophagitis; Z90.49 Acquired absence of other specified parts of digestive tract; Z90.710 Acquired absence of both cervix and uterus; R00.0 Tachycardia, unspecified; E86.1 Hypovolemia; Z79.01 Long term (current) use of anticoagulants; Z79.82 Long term (current) use of aspirin; Z79.51 Long term (current) use of inhaled steroids
CPT/HCPCS: 36415; 71046; 80048; 80053; 80069; 81003; 82550; 83605; 83735; 84100; 84484; 85007; 85025; 85651; 86140; 86710; 87040; 87070; 87205; 93005; 94664; 94760; 99285; J8499

== ENCOUNTER 2017-11-05 10:46 | Outpatient (CLI) | payer MEDICARE, OTHER ==
[2017-11-05 11:01] LABS: APPEARANCE,URINE TURBID; BILIRUBIN, URINE 1+ (NEGATIVE); COLOR,URINE YELLOW; GLUCOSE, URINE (UA) NEGATIVE (NEGATIVE); KETONES,URINE NEGATIVE (NEGATIVE); LEUKOCYTE ESTERASE ,URINE 3+ (NEGATIVE); NITRITE,URINE NEGATIVE (NEGATIVE); PH,URINE 5 (4.5-8.0); PROTEIN,URINE 2+ (NEGATIVE); UROBILINOGEN,URINE 1 MG/DL (0.0-1.0)
== END 2017-11-05 12:46 | disposition home or self-care (01) ==
LOC: LAB 10:46
DX: R30.0 Dysuria (principal)
CPT/HCPCS: 81003; 87086

== ENCOUNTER 2017-11-27 10:32 | Emergency (ER) | payer MEDICARE, MEDICAID ==
[~2017-11-27] VITALS: Ht 165.1 cm; Wt 81.6 kg
[2017-11-27 10:58] VITALS: BP 139/84
[2017-11-27] MEDS ORDERED: Tylenol #3 tab (300mg/30mg) ORAL ONE (11:15)
[2017-11-27] MEDS ORDERED: Ketorolac 60mg Inj IM ONE (11:15)
[2017-11-27 12:43] LABS: APPEARANCE,URINE CLEAR; BILIRUBIN, URINE NEGATIVE (NEGATIVE); GLUCOSE, URINE (UA) NEGATIVE (NEGATIVE); KETONES,URINE NEGATIVE (NEGATIVE); LEUKOCYTE ESTERASE ,URINE 3+ (NEGATIVE); NITRITE,URINE NEGATIVE (NEGATIVE); PH,URINE 6 (4.5-8.0); PROTEIN,URINE NEGATIVE (NEGATIVE); UROBILINOGEN,URINE NORMAL MG/DL (0.0-1.0)
[2017-11-27 12:55] LABS: COLOR,URINE YELLOW
[2017-11-27] MEDS ORDERED: ROBAXIN-750750 MG PO (13:46)
[2017-11-27] MEDS ORDERED: ACETAMINOPHEN-1 EAC1 ORAL (13:46)
[2017-11-27 14:00] VITALS: BP 139/84
--- NOTE | 2017-11-27 16:49 | Diagnostic Imaging Report ---
Indication: Left flank pain Technique: Grayscale and duplex images of the kidneys, retroperitoneum, and bladder were obtained. Comparison: 06/24/2017 Findings: Right kidney measures 12.1 cm in length. Left kidney measures 11.5 cm in length. Both kidneys demonstrate normal echogenicity. No hydronephrosis. Right kidney demonstrates a 4 cm interpolar region cyst. Left kidney demonstrates 9 mm lower pole cyst. Equivocal bright echoes are seen in the left renal sinus, not definitely evident previously. Normal inferior vena cava. Bladder is nondistended. Apparent bladder wall thickening is probably an artifact of under distention, appearance similar to previous. Incidentally noted is increased echogenicity of the left lobe of the liver. Impression: Negative for hydronephrosis Bilateral renal cysts Very questionable nonobstructive left renal calculi. Fatty liver incidentally noted
--- NOTE | 2017-11-29 07:19 | Emergency Room Report ---
History of Present Illness General Chief Complaint: Back Pain-No Injury Source: Patient Present Illness HPI Patient presents with left lower back pain Initially she was reporting flank type pain Patient reports that she was on recent antibiotics for a bladder infection Had seen her primary physician who wanted her to have an ultrasound Denies any dysuria or frequency and eyes any fevers or chills Pain is worse with tried to stand and movement Denies any recent fall or trauma Denies any focal weakness Allergies: Coded Allergies: No Known Allergies (Unverified , 10/18/15) Patient History Past Medical History: see triage record Pertinent Family History: none Last Menstrual Period: total hysterectomy Reviewed Nursing Documentation: PMH: Agreed; PSxH: Agreed Nursing Documentation-PMH Past Medical History: No History, Except For Hx Cardiac Problems: No Hx Hypertension: Yes Hx Pacemaker: No Hx Asthma: Yes Hx COPD: Yes Hx Diabetes: No Hx Cancer: No Hx Gastrointestinal Problems: Yes - GERD History Of Psychiatric Problem: No Hx Neurological Problems: No Hx Cerebrovascular Accident: No Hx Seizures: No Hx Tremors: Yes Hx Syncope: No Hx Headaches: Yes Hx Weakness: Yes Hx Neurologic Surgery: No Hx Brain Shunt: No Review of Systems All Other Systems: negative except mentioned in HPI Physical Exam Vital Signs Date Time Temp Pulse Resp B/P (MAP) Pulse Ox O2 Delivery O2 Flow Rate FiO2 11/27/17 10:42 98.4 107 16 139/84 96 Room Air 98.4 Sp02 EP Interpretation: reviewed, normal General Appearance: well appearing, no apparent distress Head: normocephalic, atraumatic Eyes: bilateral eye PERRL, bilateral eye EOMI ENT: hearing grossly normal, normal pharynx, TMs + canals normal, uvula midline Neck: full range of motion, supple, no meningismus, no bony tend Respiratory: lungs clear, normal breath sounds, no rhonchi, no respiratory distress, no retraction, no accessory muscle use Cardiovascular #1: normal peripheral pulses, regular rate, rhythm, no edema, no gallop, no JVD, no murmur Gastrointestinal: normal bowel sounds, non tender, soft, no mass, no organomegaly, non-distended, no guarding, no hernia, no pulsatile mass, no rebound Genitourinary: no CVA tenderness Musculoskeletal: other - Uncomfortable on palpation of the left posterior superior iliac crest region no other focal deficit Neurologic: oriented x3, responsive, door tender III-XII nml as tested, sensory intact Psychiatric: mood/affect normal Skin: normal color, no rash, warm/dry, palpation normal Lymphatic: normal inspection, no adenopathy Medical Decision Making Diagnostic Impression: Primary Impression: back pain Additional Impression: flank pain ER Course Multiple differentials are considered including but not limited to muscle skeletal, renal, infectious pathology Patient's ultrasound does not reveal any acute pathology Urine sample showed 3+ leukocytes however there is moderate amount of contamination And this will be pending further microbiology as needed I did not feel the patient has findings consistent with pyelonephritis And will have close follow-up with her primary physician Labs Test 11/27/17 11:29 Urine Color Yellow Urine Appearance Clear Urine pH 6 (4.5-8.0) Urine Specific [place] 1.020 (1.005-1.035) Urine Protein Negative (NEGATIVE) Urine Glucose (UA) Negative (NEGATIVE) Urine Ketones Negative (NEGATIVE) Urine Occult Blood Negative (NEGATIVE) Urine Nitrite Negative (NEGATIVE) Urine Bilirubin Negative (NEGATIVE) Urine Urobilinogen Normal MG/DL (0.0-1.0) Urine Leukocyte Esterase 3+ (NEGATIVE) Urine RBC 0-2 /HPF (0 - 2) Urine WBC 5-10 /HPF (0 - 2) Urine Squamous Epithelial Cells Moderate /LPF (NONE/OCC) Urine Bacteria Few /HPF (NONE) CT/MRI/US Diagnostic Results CT/MRI/US Diagnostic Results : Impression Renal ultrasoundImpression: Negative for hydronephrosis Bilateral renal cysts Very questionable nonobstructive left renal calculi. Fatty liver incidentally noted Last Vital Signs Date Time Temp Pulse Resp B/P (MAP) Pulse Ox O2 Delivery O2 Flow Rate FiO2 11/27/17 14:00 98.4 16 139/84 96 Room Air 209.1 11/27/17 10:42 107 Status: improved Disposition: HOME, SELF-CARE Condition: Improved Scripts Acetaminophen With Codeine (T#3) (TYLENOL #3 TAB*) Y Tab 1 TAB ORAL Q8H PRN for For Pain, #10 TAB Prov: Deshaun Nieves DO 11/27/17 Methocarbamol* (ROBAXIN-750*) 750 Mg Tablet 750 MG PO TID, #21 TAB 0 Refills Prov: Deshaun Nieves DO 11/27/17 Referrals: Santiago Anders DO (PCP) Patient Instructions: Flank Pain, [id number], Back Pain, Adult Additional Instructions: Patient is provided with the discharge instructions notified to follow up with primary doctor in the next 2-3 days otherwise return to the er with any worsening symptoms. Please note that this report is being documented using [employer] technology. This can lead to erroneous entry secondary to incorrect interpretation by the dictating instrument. Deshaun Nieves DO November 29, 2017 07:19
== END 2017-11-27 14:00 | disposition home or self-care (01) ==
LOC: EMR 13:18
DX: M54.5 Low back pain (principal); R10.9 Unspecified abdominal pain; I10 Essential (primary) hypertension; J44.9 Chronic obstructive pulmonary disease, unspecified; K21.9 Gastro-esophageal reflux disease without esophagitis; N28.1 Cyst of kidney, acquired; K76.0 Fatty (change of) liver, not elsewhere classified
CPT/HCPCS: 76770; 81003; 96372; 99284

== ENCOUNTER → 2018-01-20 | Outpatient (CLI) | payer MEDICARE, MEDICAID ==
[~2018-01-20] MED LIST changes: +ACETAMINOPHEN-1 EAC1 ORAL; +ROBAXIN-750750 MG PO
[2018-01-20 14:05] LABS: HEMATOCRIT 40.5 % (37.0-47.0); HEMOGLOBIN 13.3 G/DL (12.0-16.0); LYMPHOCYTES % (AUTO) 45.3 % (20.0-45.0); MEAN CORPUSCULAR VOLUME 86 FL (80-99); MONOCYTES % (AUTO) 3.5 % (1.0-10.0); NEUTROPHILS % (AUTO) 48.2 % (45.0-75.0); PLATELET COUNT 291 K/UL (150-450); RED BLOOD COUNT 4.73 M/UL (4.20-5.40); RED CELL DISTRIBUTION WIDTH 11.8 % (11.6-14.8); WHITE BLOOD COUNT 6.6 K/UL (4.8-10.8)
--- NOTE | 2018-01-20 14:19 | Diagnostic Imaging Report ---
Indication: Cough Technique: 2 views of the chest Comparison: 08/18/2017 Findings: No focal airspace consolidation, pleural effusion or pneumothorax. Heart size and mediastinal contours within normal limits and stable compared to the prior exam. The aorta is tortuous and calcified. No acute osseous abnormality. Surgical clips noted in the upper abdomen, likely prior cholecystectomy. Impression: No radiographic evidence of acute cardiopulmonary disease. No significant interval change from the prior exam.
[2018-01-20 14:22] LABS: APPEARANCE,URINE SLIGHTLY CLOUDY; BILIRUBIN, URINE NEGATIVE (NEGATIVE); COLOR,URINE YELLOW; GLUCOSE, URINE (UA) NEGATIVE (NEGATIVE); KETONES,URINE NEGATIVE (NEGATIVE); LEUKOCYTE ESTERASE ,URINE 3+ (NEGATIVE); NITRITE,URINE NEGATIVE (NEGATIVE); PH,URINE 5 (4.5-8.0); PROTEIN,URINE 1+ (NEGATIVE); UROBILINOGEN,URINE NORMAL MG/DL (0.0-1.0)
[2018-01-20 14:49] LABS: ALANINE AMINOTRANSFERASE 28 U/L (12-78); ALBUMIN 4.3 G/DL (3.4-5.0); ALKALINE PHOSPHATASE 131 U/L (46-116); ANION GAP 9 mmol/L (5-15); ASPARTATE AMINO TRANSFERASE 18 U/L (15-37); BILIRUBIN,TOTAL 0.4 MG/DL (0.2-1.0); BLOOD UREA NITROGEN 12 mg/dL (7-18); CALCIUM 9.2 MG/DL (8.5-10.1); CARBON DIOXIDE 29 MMOL/L (21-32); CHLORIDE 102 MMOL/L (98-107); CHOLESTEROL 228 MG/DL (< 200); CREATININE 0.9 MG/DL (0.55-1.30); HDL CHOLESTEROL 74 MG/DL (40-60); POTASSIUM 3.5 MMOL/L (3.5-5.1); SODIUM 139 MMOL/L (136-145); TRIGLYCERIDES 130 MG/DL (30-150)
== END | disposition home or self-care (01) ==
LOC: RAD 13:22
DX: I10 Essential (primary) hypertension (principal); Z90.710 Acquired absence of both cervix and uterus; E78.00 Pure hypercholesterolemia, unspecified; R05 Cough; Z90.49 Acquired absence of other specified parts of digestive tract
CPT/HCPCS: 36415; 71046; 80053; 80061; 81001; 84443; 85025; 86705; 86709; 86803; 87086; 87340

== ENCOUNTER 2018-04-28 10:44 | Outpatient (CLI) | payer MEDICARE, MEDICAID ==
[2018-04-28 11:14] LABS: BASOPHILS % (AUTO) 1.2 % (0.0-2.0); EOSINOPHILS % (AUTO) 1.7 % (0.0-3.0); HEMATOCRIT 43.1 % (37.0-47.0); HEMOGLOBIN 13.9 G/DL (12.0-16.0); LYMPHOCYTES % (AUTO) 37.8 % (20.0-45.0); MEAN CORPUSCULAR VOLUME 83 FL (80-99); MONOCYTES % (AUTO) 4.6 % (1.0-10.0); NEUTROPHILS % (AUTO) 54.8 % (45.0-75.0); PLATELET COUNT 329 K/UL (150-450); RED BLOOD COUNT 5.18 M/UL (4.20-5.40); RED CELL DISTRIBUTION WIDTH 11.4 % (11.6-14.8); WHITE BLOOD COUNT 6.3 K/UL (4.8-10.8)
[2018-04-28 11:23] LABS: ANION GAP 8 mmol/L (5-15); BLOOD UREA NITROGEN 12 mg/dL (7-18); CALCIUM 9.6 MG/DL (8.5-10.1); CARBON DIOXIDE 30 MMOL/L (21-32); CHLORIDE 103 MMOL/L (98-107); CREATININE 0.8 MG/DL (0.55-1.30); POTASSIUM 3.8 MMOL/L (3.5-5.1); SODIUM 141 MMOL/L (136-145)
== END 2018-04-28 12:44 | disposition home or self-care (01) ==
LOC: ULS 10:44
DX: R25.2 Cramp and spasm (principal); M21.40 Flat foot [pes planus] (acquired), unspecified foot
CPT/HCPCS: 36415; 80048; 85025